=== PATIENT | female | born 1945 | race African-American/Black ===

== ENCOUNTER → 2016-10-27 | Outpatient (CLI) | payer MEDICARE, OTHER | LOC: RAD 09:13 | PROVIDERS: ATTEND Internal Medicine Geriatric Medicine | DX: R63.4 Abnormal weight loss (principal) | CPT/HCPCS: 74177; 82565 ==

== ENCOUNTER → 2016-10-29 | Outpatient (CLI) | payer MEDICARE, OTHER | LOC: RAD 15:13 | PROVIDERS: ATTEND Internal Medicine Geriatric Medicine | DX: R91.8 Other nonspecific abnormal finding of lung field (principal) | CPT/HCPCS: 71260 ==

== ENCOUNTER 2016-11-03 16:36 | Inpatient (IN) | payer MEDICARE, OTHER ==
[2016-11-03] MEDS ORDERED: NORMAL SALINE 1000 ML 1,000 ML IV ONE ×2 (16:52→19:30)
[2016-11-03] MEDS ORDERED: CEFEPIME 2 GM/D5W RTU 50 ML IV SCH (17:15)
[2016-11-03 17:52] LABS: HEMATOCRIT 36.9 % (36.0-47.0); HEMOGLOBIN 11.5 g/dL (12.0-15.5); HGB HCT DIFFERENCE -2.4; MEAN CORPUSCULAR HEMOGLOBIN 27.9 pg (27.0-33.4); MEAN CORPUSCULAR VOLUME 90 fl (80-97); RED BLOOD COUNT 4.11 10^6/uL (3.72-5.28); RED CELL DISTRIBUTION WIDTH 14.9 % (11.5-14.0); WHITE BLOOD COUNT 17.2 10^3/uL (4.0-10.5)
[2016-11-03 17:55] LABS: PARTIAL THROMBOPLASTIN TIME 26.6 SEC (23.5-35.8); PROTHROMBIN TIME 17.3 SEC (11.4-15.4)
[2016-11-03 18:19] LABS: ALANINE AMINOTRANSFERASE 43 U/L (9-52); ALBUMIN 2.6 g/dL (3.5-5.0); ALKALINE PHOSPHATASE 112 U/L (38-126); ANION GAP 17 (5-19); ASPARTATE AMINO TRANSFERASE 44 U/L (14-36); BILIRUBIN,TOTAL 0.4 mg/dL (0.2-1.3); BLOOD UREA NITROGEN 94 mg/dL (7-20); CARBON DIOXIDE 25 mmol/L (22-30); CHLORIDE 118 mmol/L (98-107); CREATININE RESULT 2.63 mg/dL (0.52-1.25); GLUCOSE 281 mg/dL (75-110); POTASSIUM 4.3 mmol/L (3.6-5.0); SODIUM 160.1 mmol/L (137-145); TOTAL PROTEIN 6.6 g/dL (6.3-8.2)
[2016-11-03 18:24] LABS: BASOPHILS % (MANUAL) 0 % (0-2); EOSINOPHILS % (MANUAL) 1 % (0-6); LYMPHOCYTES % (MANUAL) 4 % (13-45); TOTAL CELLS COUNTED 100
[2016-11-03 18:25] LABS: ANISOCYTOSIS SLIGHT; TOXIC GRANULATION SLIGHT
--- NOTE | 2016-11-03 18:26 | PDOC H&P ---
History of Present Illness Admission Date/PCP: 11/03/16 16:47 OLGA OSUNKJULIAA Patient complains of: Fatigue, poor oral intake History of Present Illness: KIRBY RAMIREZ is a 71 year old female who was recently diagnosed with right middle lobe mass and large right pleural effusion. In view of her significant history of cigarette smoking and rapid weight loss there is concern for possible underlying malignancy. Patient was schedule for outpatient right thoracentesis on 11/08/2016. Family brought her to the office today due to worsening fatigue, difficulty with ambulation, poor oral intake for food and fluid and difficulty with breathing. Patient was lifted into wheelchair during this office visit. Her initial evaluation in the office did revealed vitals BP 90/63, MA 1233/min, RR 28/min and temperature was 98.6% on room air with saturation at 90%. In view of demonstrable systemic inflammatory response syndrome parameters patient's family was advised hospitalization for further evaluation and management. Her overall prognosis remain poor in view of her recent circumstances, this was further discussed with spouse and daughters in the office and decision was made to make patient a DNR status. Past Medical History Cardiac Medical History: Reports: Hyperlipidema, Hypertension Pulmonary Medical History: Reports: Other - Right Pleural effusion EENT Medical History: Reports: None Neurological Medical History: Reports: None Endocrine Medical History: Reports: Diabetes Mellitus Type 2 Endocrine History Note: Vitamin D deficiency Renal/ Medical History: Reports: None Malignancy Medical History: Reports: Other - Right Middle Lobe mass with right pleural effusion GI Medical History: Reports: Other - Hemorrhoid GI History Note: Hemorrhoid Psychiatric Medical History: Reports: Dementia - senile type, Depression Past Surgical History Past Surgical History: Reports: Cardiac Catheterization - 2002 Social History Occupation: Retired [employer] worker at [employer] Lives with: Spouse/Significant other Smoking Status: Current Every Day Smoker - until recent illness Cigarettes Packs Per Day: 1 Number of Years Smokin Frequency of Alcohol Use: None Hx Recreational Drug Use: No Drugs: None - Advance Directive Resuscitation Status: Do Not Resuscitate Surrogate healthcare decision maker:: Spouse Family History Family History: DM, Hypertension Parental Family History Reviewed: Yes Children Family History Reviewed: Yes Sibling(s) Family History Reviewed.: Yes Medication/Allergy Home Medications: Lisinopril [Prinivil 40 mg Tablet] 40 mg PO DAILY 05/13/12 Metformin HCl [Glucophage XR 500 mg Tablet] 500 mg PO QPM 05/13/12 Acetaminophen [Tylenol Extra Strength 500 mg Tablet] 1 tab PO Q8 PRN 11/03/16 Aspirin [Aspir-Low] 81 mg PO DAILY 11/03/16 Dronabinol [Dronabinol] 2.5 mg PO DAILY 11/03/16 Ergocalciferol (Vitamin D2) [Vitamin D2] 50,000 unit PO ASDIR PRN 11/03/16 Memantine HCl/Donepezil HCl [Namzaric 28 mg-10 mg Capsule] 1 cap PO DAILY Metoprolol Succinate [Toprol Xl 50 mg Tab.sr] 50 mg PO DAILY 11/03/16 Sertraline HCl [Sertraline HCl] 25 mg PO DAILY 11/03/16 Simvastatin [Simvastatin] 20 mg PO DAILY 11/03/16 Allergies/Adverse Reactions: No Known Allergies Allergy (Unverified 05/13/12 20:10) Review of Systems ROS unobtainable: Due to mental status Review of Systems: as per spouse and daughter's input Constitutional: PRESENT: fatigue, weakness, weight loss Respiratory: PRESENT: dyspnea Neurological: PRESENT: confusion, memory loss, weakness Psychiatric: PRESENT: depression Physical Exam Vital Signs: Temp Pulse Resp BP Pulse Ox 97.5 F 115 H 23 H 85/65 L 95 11/03/16 16:50 11/03/16 16:50 11/03/16 16:50 11/03/16 16:50 11/03/16 16:50 Intake & Output 11/02/16 11/03/16 11/04/16 06:59 06:59 06:59 Weight 53.8 kg General appearance: PRESENT: disheveled, severe distress, thin Head exam: PRESENT: atraumatic, normocephalic Eye exam: PRESENT: conjunctiva pink, EOMI, PERRLA. ABSENT: scleral icterus Ear exam: PRESENT: normal external ear exam Mouth exam: PRESENT: dry mucosa Teeth exam: PRESENT: edentulous Throat exam: ABSENT: post pharyngeal erythema, tonsillar erythema, tonsillar exudate, tonsillogmegaly, other Neck exam: PRESENT: full ROM. ABSENT: carotid bruit, JVD, lymphadenopathy, thyromegaly Respiratory exam: PRESENT: crackles - over lower lung zone bilaterally, decreased breath sounds - right lung zone, tachypnea Cardiovascular exam: PRESENT: tachycardia Pulses: PRESENT: +1 pedal pulses bilateral Vascular exam: PRESENT: pallor GI/Abdominal exam: PRESENT: normal bowel sounds, soft. ABSENT: distended, guarding, mass, organolmegaly, rebound, tenderness Rectal exam: PRESENT: deferred Extremities exam: PRESENT: full ROM Musculoskeletal exam: PRESENT: deformity - from arthritis chamnges involving multiple joints, full ROM Neurological exam: PRESENT: other - Lethergic, non verbal and not following commands Psychiatric exam: PRESENT: flat affect Skin exam: PRESENT: dry. ABSENT: abrasion, cyanosis, erythema, intact, jaundice , mottled, normal color, pallor, petechiae, rash, skin tears, urticaria, vesicles, warm, other Results Laboratory Results: see chart for details Assessment & Plan - Diagnosis (1) SIRS due to infectious process with organ dysfunction Is this a current diagnosis for this admission?: YesPlan: see admitting physician orders. (2) Pleural effusion in other conditions classified elsewhere Is this a current diagnosis for this admission?: YesPlan: see admitting physician orders (3) Mass of middle lobe of right lung Is this a current diagnosis for this admission?: YesPlan: see admitting physician orders (4) HTN (hypertension) Qualifiers: Hypertension type: essential hypertension Qualified Code(s): I10 - Essential (primary) hypertension Is this a current diagnosis for this admission?: Yes (5) HLD (hyperlipidemia) Qualifiers: Hyperlipidemia type: pure hypercholesterolemia Qualified Code(s): E78.00 - Pure hypercholesterolemia, unspecified; E78.0 - Pure hypercholesterolemia Is this a current diagnosis for this admission?: Yes (6) Diabetes mellitus, type 2 Qualifiers: Diabetes mellitus complication status: with hyperglycemia Is this a current diagnosis for this admission?: Yes (7) Dementia, senile Qualifiers: Dementia behavioral disturbance: without behavioral disturbance Qualified Code(s): F03.90 - Unspecified dementia without behavioral disturbance Is this a current diagnosis for this admission?: Yes (8) Depression Qualifiers: Depression Type: major depressive disorder Major depression recurrence : recurrent Active/Remission status: currently active Major depression episode severity: moderate Qualified Code(s): F33.1 - Major depressive disorder, recurrent, moderate Is this a current diagnosis for this admission?: Yes - Time Time Spent: Greater than 70 Minutes Medications reviewed and adjusted accordingly: Yes Anticipated discharge: Other Within: Other - Inpatient Certification Based on my medical assessment, after consideration of the patient's comorbidities, presenting symptoms, or acuity I expect that the services needed warrant INPATIENT care.: Yes I certify that my determination is in accordance with my understanding of Medicare's requirements for reasonable and necessary INPATIENT services [42 CFR 412.3e].: Yes Medical Necessity: Need Close Monitoring Due to Risk of Patient Decompensation, Need For IV Fluids, Need for IV Antibiotics, Risk of Complication if Not Cared For in Hospital Post Hospital Care: D/C Sanitation Worker Documentation - Plan Summary Plan Summary: see admitting physician orders.
[2016-11-03] MEDS ORDERED: ACETAMINOPHEN 650 MG SUPP.RECT PR PRN (18:29)
[2016-11-03] MEDS ORDERED: DEXTROSE 40% GEL 15 GM TUBE PO PRN ×2 (18:30)
[2016-11-03] MEDS ORDERED: DEXTROSE 50%-WATER 25 GM/50 ML DISP.SYRIN IV PRN ×2 (18:30)
[2016-11-03] MEDS ORDERED: GLUCAGON,HUMAN RECOMB 1 MG INJ IM PRN (18:30)
[2016-11-03] MEDS: NORMAL SALINE 1000 ML 1,000 ML IV PRN (18:33)
[2016-11-03] MEDS: LANSOPRAZOLE 30 MG TAB.RAP.DR PO SCH (18:33)
[2016-11-03 18:47] LABS: CALCIUM 13.4 mg/dL (8.4-10.2)
[2016-11-03] MEDS ORDERED: LEVOFLOXACIN 500 MG/D5W RTU 500 MG/100 ML RTUPB IV ONE (20:00)
[2016-11-03 20:29] LABS: APPEARANCE,URINE SLIGHTLY-CLOUDY; BILIRUBIN,URINE NEGATIVE (NEGATIVE); GLUCOSE, URINE NEGATIVE (NEGATIVE); KETONES,URINE NEGATIVE (NEGATIVE); LEUKOCYTE ESTERASE,URINE NEGATIVE (NEGATIVE); NITRITE,URINE NEGATIVE (NEGATIVE); PROTEIN,URINE NEGATIVE (NEGATIVE); URINE SPECIFIC GRAVITY 1.017; UROBILINOGEN,URINE NEGATIVE mg/dL (<2.0)
[2016-11-03] MEDS ORDERED: CEFEPIME HCL 2 GM in DEXTROSE 5%-WATER 50 ML IV SCH (22:00)
[2016-11-03] MEDS: CEFEPIME 1 GM/D5W RTU 1 GM/50 ML RTUPB IV SCH (22:17)
[2016-11-04 04:34] LABS: HEMATOCRIT 35.6 % (36.0-47.0); HEMOGLOBIN 11.3 g/dL (12.0-15.5); HGB HCT DIFFERENCE -1.7; MEAN CORPUSCULAR HEMOGLOBIN 28.3 pg (27.0-33.4); MEAN CORPUSCULAR HGB CONC 31.7 g/dL (32.0-36.0); MEAN CORPUSCULAR VOLUME 89 fl (80-97); RED BLOOD COUNT 3.98 10^6/uL (3.72-5.28); RED CELL DISTRIBUTION WIDTH 14.9 % (11.5-14.0); WHITE BLOOD COUNT 17.6 10^3/uL (4.0-10.5)
[2016-11-04 04:35] LABS: ALANINE AMINOTRANSFERASE 38 U/L (9-52); ALBUMIN 2.5 g/dL (3.5-5.0); ALKALINE PHOSPHATASE 90 U/L (38-126); ANION GAP 9 (5-19); ASPARTATE AMINO TRANSFERASE 35 U/L (14-36); BILIRUBIN,TOTAL 0.3 mg/dL (0.2-1.3); BLOOD UREA NITROGEN 83 mg/dL (7-20); CARBON DIOXIDE 30 mmol/L (22-30); CHLORIDE 125 mmol/L (98-107); CREATININE RESULT 1.77 mg/dL (0.52-1.25); GLUCOSE 92 mg/dL (75-110); POTASSIUM 4.1 mmol/L (3.6-5.0); SODIUM 163.6 mmol/L (137-145); TOTAL PROTEIN 6.5 g/dL (6.3-8.2)
[2016-11-04 05:06] LABS: BAND NEUTROPHILS % (MANUAL) 2 % (3-5); BASOPHILS % (MANUAL) 0 % (0-2); EOSINOPHILS % (MANUAL) 2 % (0-6); LYMPHOCYTES % (MANUAL) 12 % (13-45); TOTAL CELLS COUNTED 100
[2016-11-04 05:07] LABS: ANISOCYTOSIS SLIGHT; BURR CELLS SLIGHT; OVALOCYTES SLIGHT; POIKILOCYTOSIS SLIGHT; TEAR DROP CELLS SLIGHT; TOXIC GRANULATION SLIGHT
[2016-11-04] MEDS: NORMAL SALINE 1000 ML 1,000 ML IV PRN ×2 (05:33→10:12)
[2016-11-04] MEDS ORDERED: NORMAL SALINE 1000 ML 1,000 ML IV ONE (08:15)
--- NOTE | 2016-11-04 08:20 | PDOC PROGRESS REPORT ---
Subjective Progress Note for:: 11/04/16 Subjective:: Patient is more awake this morning. Minimally verbal but remain inappropriate due to baseline dementia. Daughters at bedside. Remain on IV fluid support with improvement in her tachycardia and hypotension. No reported fever, vomiting or diarrhea. Breathing is less labored. There is significant hypercalcemia on her blood chemistry findings. Daughter reported expressed discomfort over left shoulder joint region. Physical Exam Vital Signs: Temp Pulse Resp BP Pulse Ox 97.9 F 90 19 109/65 95 11/04/16 07:23 11/04/16 07:23 11/04/16 07:23 11/04/16 07:23 11/04/16 05:50 Intake & Output 11/03/16 11/04/16 11/05/16 06:59 06:59 06:59 Intake Total 1000 Output Total 650 Balance 350 Weight 56.5 kg General appearance: PRESENT: no acute distress, cooperative Head exam: PRESENT: atraumatic, normocephalic Eye exam: PRESENT: conjunctiva pink, EOMI, PERRLA. ABSENT: scleral icterus Teeth exam: PRESENT: edentulous Neck exam: PRESENT: full ROM. ABSENT: carotid bruit, JVD, lymphadenopathy, thyromegaly Respiratory exam: PRESENT: crackles - bibasilar region, decreased breath sounds - over left lower lung zone Cardiovascular exam: PRESENT: RRR. ABSENT: diastolic murmur, rubs, systolic murmur Pulses: PRESENT: normal radial pulses Vascular exam: PRESENT: normal capillary refill, pallor GI/Abdominal exam: PRESENT: normal bowel sounds, soft. ABSENT: distended, guarding, mass, organolmegaly, rebound, tenderness Extremities exam: PRESENT: full ROM Musculoskeletal exam: PRESENT: deformity - of arthritis with generalized muscle wasting, full ROM Neurological exam: PRESENT: awake, other - generalized deconditioning Psychiatric exam: PRESENT: flat affect Skin exam: PRESENT: dry, intact, warm. ABSENT: cyanosis, rash Results Laboratory Results: 11/04/16 04:00 11/04/16 04:00 11/03/16 11/03/16 11/03/16 17:36 17:36 17:36 WBC 17.2 H RBC 4.11 Hgb 11.5 L Hct 36.9 MCV 90 MCH 27.9 MCHC 31.0 L RDW 14.9 H Plt Count 295 Seg Neutrophils % Not Reportable Lymphocytes % Not Reportable Monocytes % Not Reportable Eosinophils % Not Reportable Basophils % Not Reportable Absolute Neutrophils Not Reportable Absolute Lymphocytes Not Reportable Absolute Monocytes Not Reportable Absolute Eosinophils Not Reportable Absolute Basophils Not Reportable Sodium 160.1 H Potassium 4.3 Chloride 118 H Carbon Dioxide 25 Anion Gap 17 BUN 94 H Creatinine 2.63 H Est GFR ( Amer) 22 L Est GFR (Non-Af Amer) 18 L Glucose 281 H Lactic Acid 3.6 H Calcium 13.4 H* Total Bilirubin 0.4 AST 44 H ALT 43 Alkaline Phosphatase 112 Total Protein 6.6 Albumin 2.6 L Urine Color Urine Appearance Urine pH Ur Specific Fox Urine Protein Urine Glucose (UA) Urine Ketones Urine Blood Urine Nitrite Ur Leukocyte Esterase Urine WBC (Auto) Urine RBC (Auto) 11/03/16 11/03/16 11/04/16 19:50 21:59 04:00 WBC 17.6 H RBC 3.98 Hgb 11.3 L Hct 35.6 L MCV 89 MCH 28.3 MCHC 31.7 L RDW 14.9 H Plt Count 254 Seg Neutrophils % Not Reportable Lymphocytes % Not Reportable Monocytes % Not Reportable Eosinophils % Not Reportable Basophils % Not Reportable Absolute Neutrophils Not Reportable Absolute Lymphocytes Not Reportable Absolute Monocytes Not Reportable Absolute Eosinophils Not Reportable Absolute Basophils Not Reportable Sodium Potassium Chloride Carbon Dioxide Anion Gap BUN Creatinine Est GFR ( Amer) Est GFR (Non-Af Amer) Glucose Lactic Acid 2.4 H Calcium Total Bilirubin AST ALT Alkaline Phosphatase Total Protein Albumin Urine Color YELLOW Urine Appearance SLIGHTLY-CLOUDY Urine pH 5.0 Ur Specific Fox 1.017 Urine Protein NEGATIVE Urine Glucose (UA) NEGATIVE Urine Ketones NEGATIVE Urine Blood NEGATIVE Urine Nitrite NEGATIVE Ur Leukocyte Esterase NEGATIVE Urine WBC (Auto) 2 Urine RBC (Auto) 1 11/04/16 04:00 WBC RBC Hgb Hct MCV MCH MCHC RDW Plt Count Seg Neutrophils % Lymphocytes % Monocytes % Eosinophils % Basophils % Absolute Neutrophils Absolute Lymphocytes Absolute Monocytes Absolute Eosinophils Absolute Basophils Sodium 163.6 H Potassium 4.1 Chloride 125 H Carbon Dioxide 30 Anion Gap 9 BUN 83 H Creatinine 1.77 H Est GFR ( Amer) 34 L Est GFR (Non-Af Amer) 28 L Glucose 92 Lactic Acid Calcium 13.0 H* Total Bilirubin 0.3 AST 35 ALT 38 Alkaline Phosphatase 90 Total Protein 6.5 Albumin 2.5 L Urine Color Urine Appearance Urine pH Ur Specific Fox Urine Protein Urine Glucose (UA) Urine Ketones Urine Blood Urine Nitrite Ur Leukocyte Esterase Urine WBC (Auto) Urine RBC (Auto) Impressions: Chest X-Ray 11/03/16 00:00 IMPRESSION: Airspace consolidation is identified in the right mid lung field which correlates with the right middle lobe collapse identified on the CT scan. Left lung remains clear. Other findings as noted above Assessment & Plan - Diagnosis (1) SIRS due to infectious process with organ dysfunction Is this a current diagnosis for this admission?: YesPlan: Continue IN fluid support and antibiotic coverage with Levofloxacin and Cefepime. (2) Pleural effusion in other conditions classified elsewhere Is this a current diagnosis for this admission?: YesPlan: Chest X ray did not demonstrate any significant left pleural effusion. There is persistent of right middle lobe mass with air space consolidation suggestive of possible post obstructive pneumonia. I will discuss further with radiologist appropriateness of left thoracentesis and consider pulmonary consultation for possible bronchoscopy and biopsy. (3) Mass of middle lobe of right lung Is this a current diagnosis for this admission?: Yes (4) HTN (hypertension) Qualifiers: Hypertension type: essential hypertension Qualified Code(s): I10 - Essential (primary) hypertension Is this a current diagnosis for this admission?: Yes (5) HLD (hyperlipidemia) Qualifiers: Hyperlipidemia type: pure hypercholesterolemia Qualified Code(s): E78.00 - Pure hypercholesterolemia, unspecified; E78.0 - Pure hypercholesterolemia Is this a current diagnosis for this admission?: Yes (6) Diabetes mellitus, type 2 Qualifiers: Diabetes mellitus complication status: with hyperglycemia Is this a current diagnosis for this admission?: Yes (7) Dementia, senile Qualifiers: Dementia behavioral disturbance: without behavioral disturbance Qualified Code(s): F03.90 - Unspecified dementia without behavioral disturbance Is this a current diagnosis for this admission?: Yes (8) Depression Qualifiers: Depression Type: major depressive disorder Major depression recurrence : recurrent Active/Remission status: currently active Major depression episode severity: moderate Qualified Code(s): F33.1 - Major depressive disorder, recurrent, moderate Is this a current diagnosis for this admission?: Yes (9) Hypercalcemia of malignancy Is this a current diagnosis for this admission?: YesPlan: Maintain on IV fluid support.Repeat IV N/S 1 liter bolus this morning. Administer IV Pamidronate 60 mg x 1 dose. - Time Time Spent with patient: 25-34 minutes Medications reviewed and adjusted accordingly: Yes Anticipated discharge: Home with Homehealth Within: Other - Inpatient Certification Based on my medical assessment, after consideration of the patient's comorbidities, presenting symptoms, or acuity I expect that the services needed warrant INPATIENT care.: Yes I certify that my determination is in accordance with my understanding of Medicare's requirements for reasonable and necessary INPATIENT services [42 CFR 412.3e].: Yes Medical Necessity: Need For IV Fluids, Need For Continuous Telemetry Monitoring , Need for IV Antibiotics, Risk of Complication if Not Cared For in Hospital Post Hospital Care: D/C Ethnic Studies Professor Documentation - Plan Summary Plan Summary: Please admitting physician orders.
[2016-11-04] MEDS ORDERED: NORMAL SALINE IV SCH (10:00)
[2016-11-04] MEDS ORDERED: PAMIDRONATE DISODIUM IV SCH (10:00)
[2016-11-04 15:31] LABS: FLUID APPEARANCE CLOUDY; FLUID RBC SIDE 1 206; FLUID RBC SIDE 2 194; FLUID TYPE PLEURAL
[2016-11-04 15:32] LABS: FLUID RBC DILUENT USED SALINE; FLUID RBC DILUTION FACTOR 20; TOTAL RBC SQUARES COUNTED FLD 25
[2016-11-04] MEDS: DEXTROSE 5%-NORMAL SALINE 1,000 ML IV PRN (19:29)
[2016-11-04] MEDS: CEFEPIME 1 GM/D5W RTU 1 GM/50 ML RTUPB IV SCH (21:03)
[2016-11-05] MEDS: DEXTROSE 5%-NORMAL SALINE 1,000 ML IV PRN ×2 (04:35→12:00)
[2016-11-05] MEDS: LANSOPRAZOLE 30 MG TAB.RAP.DR PO SCH (05:08)
[2016-11-05 10:35] LABS: HEMATOCRIT 36.7 % (36.0-47.0); HEMOGLOBIN 10.9 g/dL (12.0-15.5); MEAN CORPUSCULAR HEMOGLOBIN 27.3 pg (27.0-33.4); MEAN CORPUSCULAR HGB CONC 29.8 g/dL (32.0-36.0); MEAN CORPUSCULAR VOLUME 92 fl (80-97); RED CELL DISTRIBUTION WIDTH 14.9 % (11.5-14.0); WHITE BLOOD COUNT 16.9 10^3/uL (4.0-10.5)
[2016-11-05 11:03] LABS: BASOPHILS % (MANUAL) 0 % (0-2); EOSINOPHILS % (MANUAL) 0 % (0-6); LYMPHOCYTES % (MANUAL) 4 % (13-45); TOTAL CELLS COUNTED 100
[2016-11-05 11:04] LABS: BURR CELLS SLIGHT; POIKILOCYTOSIS SLIGHT
[2016-11-05 11:05] LABS: OVALOCYTES SLIGHT; SCHISTOCYTES SLIGHT
[2016-11-05 11:10] LABS: ALANINE AMINOTRANSFERASE 34 U/L (9-52); ALBUMIN 2.1 g/dL (3.5-5.0); ALKALINE PHOSPHATASE 82 U/L (38-126); ANION GAP 12 (5-19); ASPARTATE AMINO TRANSFERASE 40 U/L (14-36); BILIRUBIN,TOTAL 0.4 mg/dL (0.2-1.3); BLOOD UREA NITROGEN 50 mg/dL (7-20); CARBON DIOXIDE 26 mmol/L (22-30); CHLORIDE 128 mmol/L (98-107); CREATININE RESULT 1.09 mg/dL (0.52-1.25); GLUCOSE 193 mg/dL (75-110); POTASSIUM 3.3 mmol/L (3.6-5.0); SODIUM 165.8 mmol/L (137-145); TOTAL PROTEIN 5.5 g/dL (6.3-8.2)
[2016-11-05] MEDS ORDERED: INSULIN GLARGINE,HUM.REC.ANLOG 300 UNIT/3 ML INSULN.PEN SUBCUT ONE ×2 (14:30→16:30)
--- NOTE | 2016-11-05 15:21 | PDOC PROGRESS REPORT ---
Subjective Progress Note for:: 11/05/16 Subjective:: Patient is more engaging and participated in swallowing evaluation earlier today. Tolerated oral feeding although not enough quantity. Remain minimally verbal due to generalized weakness and baseline dementia. Daughters at bedside. Remain on IV fluid support. No reported fever, vomiting or diarrhea. No reported chest pain or difficulty with breathing. Patient is post IV Pamidronate administration for significant hypercalcemia. Awaiting cytology report on her pleural fluid specimen. Physical Exam Vital Signs: Temp Pulse Resp BP Pulse Ox 98.1 F 110 H 16 132/70 H 100 11/05/16 11:56 11/05/16 14:00 11/05/16 11:56 11/05/16 11:56 11/05/16 11:56 Intake & Output 11/04/16 11/05/16 11/06/16 06:59 06:59 06:59 Intake Total 1000 1100 Output Total 650 1175 200 Balance 350 -75 -200 Weight 56.5 kg 57.2 kg General appearance: PRESENT: no acute distress, cooperative Head exam: PRESENT: atraumatic, normocephalic Eye exam: PRESENT: conjunctiva pink, EOMI, PERRLA. ABSENT: scleral icterus Mouth exam: PRESENT: moist - fairly, tongue midline Neck exam: PRESENT: full ROM. ABSENT: carotid bruit, JVD, lymphadenopathy, thyromegaly Respiratory exam: PRESENT: crackles - scattered bilaterally, decreased breath sounds - at lung bases Cardiovascular exam: PRESENT: RRR. ABSENT: diastolic murmur, rubs, systolic murmur GI/Abdominal exam: PRESENT: normal bowel sounds, soft. ABSENT: distended, guarding, mass, organolmegaly, rebound, tenderness Extremities exam: PRESENT: full ROM, tenderness - with left upper extremity movement Musculoskeletal exam: PRESENT: full ROM, other - generalized muscle wasting Neurological exam: PRESENT: awake, other - not oriented to place, time and person due to her baseline dementia Psychiatric exam: PRESENT: flat affect, normal mood Skin exam: PRESENT: dry, intact, warm. ABSENT: cyanosis, rash Results Laboratory Results: 11/05/16 10:12 11/05/16 10:12 11/04/16 11/05/16 11/05/16 14:24 10:12 10:12 WBC 16.9 H RBC 4.00 Hgb 10.9 L Hct 36.7 MCV 92 MCH 27.3 MCHC 29.8 L RDW 14.9 H Plt Count 210 Seg Neutrophils % Not Reportable Lymphocytes % Not Reportable Monocytes % Not Reportable Eosinophils % Not Reportable Basophils % Not Reportable Absolute Neutrophils Not Reportable Absolute Lymphocytes Not Reportable Absolute Monocytes Not Reportable Absolute Eosinophils Not Reportable Absolute Basophils Not Reportable Sodium 165.8 H Potassium 3.3 L Chloride 128 H Carbon Dioxide 26 Anion Gap 12 BUN 50 H Creatinine 1.09 Est GFR ( Amer) > 60 Est GFR (Non-Af Amer) 49 L Glucose 193 H Calcium 12.0 H* Total Bilirubin 0.4 AST 40 H ALT 34 Alkaline Phosphatase 82 Total Protein 5.5 L Albumin 2.1 L Fluid Type PLEURAL Fluid Source THORACENTESIS Fluid Color RED Fluid Appearance CLOUDY Fluid Viscosity LIQUID Fluid WBC 142 Fluid RBC [id number] 11/03/16 19:50 Ramos Catheter Urine Culture - Final NO GROWTH 2 DAYS Impressions: Thoracentesis Ultrasound 11/04/16 08:00 IMPRESSION: SUCCESSFUL THORACENTESIS USING ULTRASOUND GUIDANCE. Chest X-Ray 11/04/16 16:30 IMPRESSION: No pneumothorax. Persistent consolidation in the right middle lobe. Assessment & Plan - Diagnosis (1) SIRS due to infectious process with organ dysfunction Is this a current diagnosis for this admission?: Yes (2) Pleural effusion in other conditions classified elsewhere Is this a current diagnosis for this admission?: Yes (3) Mass of middle lobe of right lung Is this a current diagnosis for this admission?: Yes (4) HTN (hypertension) Qualifiers: Hypertension type: essential hypertension Qualified Code(s): I10 - Essential (primary) hypertension Is this a current diagnosis for this admission?: Yes (5) HLD (hyperlipidemia) Qualifiers: Hyperlipidemia type: pure hypercholesterolemia Qualified Code(s): E78.00 - Pure hypercholesterolemia, unspecified; E78.0 - Pure hypercholesterolemia Is this a current diagnosis for this admission?: Yes (6) Diabetes mellitus, type 2 Qualifiers: Diabetes mellitus complication status: with hyperglycemia Is this a current diagnosis for this admission?: Yes (7) Dementia, senile Qualifiers: Dementia behavioral disturbance: without behavioral disturbance Qualified Code(s): F03.90 - Unspecified dementia without behavioral disturbance Is this a current diagnosis for this admission?: Yes (8) Depression Qualifiers: Depression Type: major depressive disorder Major depression recurrence : recurrent Active/Remission status: currently active Major depression episode severity: moderate Qualified Code(s): F33.1 - Major depressive disorder, recurrent, moderate Is this a current diagnosis for this admission?: Yes (9) Hypercalcemia of malignancy Is this a current diagnosis for this admission?: Yes (10) Dehydration with hypernatremia Is this a current diagnosis for this admission?: YesPlan: I will change her IV fluid to D5W at 100mL/hour due to worsening hypernatremia from poor free water intake. (11) Hypokalemia due to inadequate potassium intake Is this a current diagnosis for this admission?: YesPlan: Patient will receive 40 mEq of potassium chloride. We will repeat BMP in am. - Time Time Spent with patient: 25-34 minutes Medications reviewed and adjusted accordingly: Yes Anticipated discharge: Other - Inpatient Certification Medical Necessity: Need Close Monitoring Due to Risk of Patient Decompensation, Need For IV Fluids, Need for IV Antibiotics, Risk of Complication if Not Cared For in Hospital Post Hospital Care: D/C Wind Up Operator Documentation - Plan Summary Plan Summary: see attending physician orders.
[2016-11-05] MEDS: POTASSI CL 20 MEQ/50 ML RIDER 50 ML IV SCH ×2 (15:55→16:25)
[2016-11-05] MEDS: INSULIN LISPRO 100 UNIT/ML 3 ML VIAL SUBCUT PRN (16:24)
[2016-11-05] MEDS: LEVOFLOXACIN 250 MG/D5W RTU 250 MG/50 ML RTUPB IV SCH (20:08)
[2016-11-05] MEDS: DEXTROSE 5%-WATER 1000 ML 1,000 ML IV PRN (20:10)
[2016-11-05] MEDS: CEFEPIME 1 GM/D5W RTU 1 GM/50 ML RTUPB IV SCH (21:48)
[2016-11-06] MEDS: INSULIN LISPRO 100 UNIT/ML 3 ML VIAL SUBCUT PRN ×3 (00:47→23:48)
[2016-11-06] MEDS: LANSOPRAZOLE 30 MG TAB.RAP.DR PO SCH (06:26)
[2016-11-06] MEDS: INSULIN GLARGINE,HUM.REC.ANLOG 300 UNIT/3 ML INSULN.PEN SUBCUT SCH (10:22)
[2016-11-06] MEDS: DEXTROSE 5%-WATER 1000 ML 1,000 ML IV PRN ×2 (10:31→21:16)
--- NOTE | 2016-11-06 15:43 | PDOC PROGRESS REPORT ---
Subjective Progress Note for:: 11/06/16 Subjective:: Patient continue to demonstrate some improvement in her alertness. No reported fever, vomiting or diarrhea. Tolerated oral feeding but intake remain a challenge. Remain minimally verbal due to generalized weakness and baseline dementia. Remain on IV fluid support. Awaiting cytology report on her pleural fluid specimen. I had extensive discussion with spouse at bedside. music professor did revealed intermittent episode of tachycardia. Physical Exam Vital Signs: Temp Pulse Resp BP Pulse Ox 98.4 F 106 H 16 140/81 H 100 11/06/16 11:17 11/06/16 14:00 11/06/16 11:17 11/06/16 11:17 11/06/16 11:17 Intake & Output 11/05/16 11/06/16 11/07/16 06:59 06:59 06:59 Intake Total 1100 2264 Output Total 1175 1500 Balance -75 764 Weight 57.2 kg 62.1 kg Physical Exam: There is generalized deconditioning. General appearance: PRESENT: no acute distress Eye exam: PRESENT: conjunctiva pink, EOMI, PERRLA Mouth exam: PRESENT: moist - fairly Teeth exam: PRESENT: edentulous Neck exam: PRESENT: full ROM. ABSENT: carotid bruit, JVD, lymphadenopathy, thyromegaly Respiratory exam: PRESENT: decreased breath sounds - at lung bases. ABSENT: accessory muscle use, chest wall tenderness, clear to auscultation elisa, crackles , prolonged expiratory phas, rales, retraction, rhonchi, stridor, symmetrical, tachypnea, unlabored, wheezes, other Cardiovascular exam: PRESENT: RRR. ABSENT: diastolic murmur, rubs, systolic murmur GI/Abdominal exam: PRESENT: normal bowel sounds, soft. ABSENT: distended, guarding, mass, organolmegaly, rebound, tenderness Musculoskeletal exam: PRESENT: other - generalized muscle wasting Neurological exam: PRESENT: awake Psychiatric exam: PRESENT: appropriate affect, normal mood. ABSENT: homicidal ideation, suicidal ideation Skin exam: PRESENT: dry, intact, warm. ABSENT: cyanosis, rash Results Laboratory Results: 11/05/16 10:12 11/05/16 10:12 11/05/16 10:12 Magnesium 2.1 Impressions: Thoracentesis Ultrasound 11/04/16 08:00 IMPRESSION: SUCCESSFUL THORACENTESIS USING ULTRASOUND GUIDANCE. Chest X-Ray 11/04/16 16:30 IMPRESSION: No pneumothorax. Persistent consolidation in the right middle lobe. Assessment & Plan - Diagnosis (1) SIRS due to infectious process with organ dysfunction Is this a current diagnosis for this admission?: YesPlan: Continue IV antibiotic coverage with Levofloxacin and Cefepime. (2) Pleural effusion in other conditions classified elsewhere Is this a current diagnosis for this admission?: Yes (3) Mass of middle lobe of right lung Is this a current diagnosis for this admission?: Yes (4) HTN (hypertension) Qualifiers: Hypertension type: essential hypertension Qualified Code(s): I10 - Essential (primary) hypertension Is this a current diagnosis for this admission?: YesPlan: I will restart on Lisinopril at 20 mg p.o daily and Metoprolol Tartrate at 12.5 mg po bid. (5) HLD (hyperlipidemia) Qualifiers: Hyperlipidemia type: pure hypercholesterolemia Qualified Code(s): E78.00 - Pure hypercholesterolemia, unspecified; E78.0 - Pure hypercholesterolemia Is this a current diagnosis for this admission?: Yes (6) Diabetes mellitus, type 2 Qualifiers: Diabetes mellitus complication status: with hyperglycemia Is this a current diagnosis for this admission?: Yes (7) Dementia, senile Qualifiers: Dementia behavioral disturbance: without behavioral disturbance Qualified Code(s): F03.90 - Unspecified dementia without behavioral disturbance Is this a current diagnosis for this admission?: Yes (8) Depression Qualifiers: Depression Type: major depressive disorder Major depression recurrence : recurrent Active/Remission status: currently active Major depression episode severity: moderate Qualified Code(s): F33.1 - Major depressive disorder, recurrent, moderate Is this a current diagnosis for this admission?: Yes (9) Hypercalcemia of malignancy Is this a current diagnosis for this admission?: Yes (10) Dehydration with hypernatremia Is this a current diagnosis for this admission?: Yes (11) Hypokalemia due to inadequate potassium intake Is this a current diagnosis for this admission?: Yes (12) Failure to thrive in adult Is this a current diagnosis for this admission?: YesPlan: Probably related to her medial condition and poor oral intake. I will start on appetite stimulant with Marinol 2.5 mg po before Lunch. (13) Physical deconditioning Is this a current diagnosis for this admission?: YesPlan: I will request physical therapy service intervention. - Time Time Spent with patient: 25-34 minutes Medications reviewed and adjusted accordingly: Yes Anticipated discharge: Home with Homehealth Within: Other - Inpatient Certification Based on my medical assessment, after consideration of the patient's comorbidities, presenting symptoms, or acuity I expect that the services needed warrant INPATIENT care.: Yes I certify that my determination is in accordance with my understanding of Medicare's requirements for reasonable and necessary INPATIENT services [42 CFR 412.3e].: Yes Medical Necessity: Need For IV Fluids, Need for Neurological Checks, Need for IV Antibiotics, Risk of Complication if Not Cared For in Hospital Post Hospital Care: D/C Client Professional Documentation - Plan Summary Plan Summary: See attending physician orders.
[2016-11-06] MEDS ORDERED: METOPROLOL TARTRATE 25 MG TABLET PO ONE (16:30)
[2016-11-06 16:37] LABS: HEMATOCRIT 34.5 % (36.0-47.0); HEMOGLOBIN 10.8 g/dL (12.0-15.5); HGB HCT DIFFERENCE -2.1; MEAN CORPUSCULAR HEMOGLOBIN 27.9 pg (27.0-33.4); MEAN CORPUSCULAR HGB CONC 31.2 g/dL (32.0-36.0); MEAN CORPUSCULAR VOLUME 90 fl (80-97); RED BLOOD COUNT 3.85 10^6/uL (3.72-5.28); RED CELL DISTRIBUTION WIDTH 15.1 % (11.5-14.0); WHITE BLOOD COUNT 18.5 10^3/uL (4.0-10.5)
[2016-11-06 16:53] LABS: ANION GAP 10 (5-19); BLOOD UREA NITROGEN 33 mg/dL (7-20); CALCIUM 10.7 mg/dL (8.4-10.2); CARBON DIOXIDE 25 mmol/L (22-30); CHLORIDE 125 mmol/L (98-107); CREATININE RESULT 0.88 mg/dL (0.52-1.25); GLUCOSE 227 mg/dL (75-110); POTASSIUM 3.4 mmol/L (3.6-5.0); SODIUM 160.3 mmol/L (137-145)
[2016-11-06 16:57] LABS: BASOPHILS % (MANUAL) 0 % (0-2); EOSINOPHILS % (MANUAL) 3 % (0-6); LYMPHOCYTES % (MANUAL) 2 % (13-45); TOTAL CELLS COUNTED 100
[2016-11-06 17:01] LABS: ANISOCYTOSIS SLIGHT; OVALOCYTES SLIGHT; POIKILOCYTOSIS SLIGHT
[2016-11-06] MEDS: CEFEPIME 1 GM/D5W RTU 1 GM/50 ML RTUPB IV SCH (21:14)
[2016-11-07] MEDS: METOPROLOL TARTRATE 25 MG TABLET PO SCH ×2 (05:44→17:55)
[2016-11-07] MEDS: LANSOPRAZOLE 30 MG TAB.RAP.DR PO SCH (05:45)
[2016-11-07] MEDS: DEXTROSE 5%-WATER 1000 ML 1,000 ML IV PRN ×2 (07:54→17:54)
[2016-11-07] MEDS: INSULIN LISPRO 100 UNIT/ML 3 ML VIAL SUBCUT PRN (07:55)
[2016-11-07] MEDS: INSULIN GLARGINE,HUM.REC.ANLOG 300 UNIT/3 ML INSULN.PEN SUBCUT SCH (10:44)
[2016-11-07] MEDS: LISINOPRIL 10 MG TABLET PO SCH (13:31)
--- NOTE | 2016-11-07 15:11 | PDOC PROGRESS REPORT ---
Subjective Progress Note for:: 11/07/16 Subjective:: Patient is more sleepy today. Poor p.o intake. No reported fever, nausea, vomiting or diarrhea. Remain on IV fluid support. Awaiting cytology report on her pleural fluid specimen. No reported difficulty with breathing, remain on supplemental oxygen at 2L/min via nasal cannula. Physical Exam Vital Signs: Temp Pulse Resp BP Pulse Ox 97.6 F 87 18 133/72 H 100 11/07/16 11:38 11/07/16 11:38 11/07/16 11:38 11/07/16 11:38 11/07/16 11:38 Intake & Output 11/06/16 11/07/16 11/08/16 06:59 06:59 06:59 Intake Total 2264 3456 Output Total 1500 1250 Balance 764 2206 Weight 62.1 kg 63.1 kg General appearance: PRESENT: no acute distress Head exam: PRESENT: atraumatic, normocephalic Eye exam: PRESENT: conjunctiva pink, EOMI, PERRLA Neck exam: PRESENT: full ROM. ABSENT: carotid bruit, JVD, lymphadenopathy, thyromegaly Respiratory exam: ABSENT: accessory muscle use, chest wall tenderness, clear to auscultation elisa, crackles, decreased breath sounds, prolonged expiratory phas, rales, retraction, rhonchi, stridor, symmetrical, tachypnea, unlabored, wheezes , other Cardiovascular exam: PRESENT: RRR. ABSENT: diastolic murmur, rubs, systolic murmur GI/Abdominal exam: PRESENT: normal bowel sounds, soft. ABSENT: distended, guarding, mass, organolmegaly, rebound, tenderness Extremities exam: PRESENT: full ROM Musculoskeletal exam: PRESENT: other - generalized muscle wasting Neurological exam: PRESENT: alert, awake, other - generalized deconditioning Psychiatric exam: PRESENT: appropriate affect Skin exam: PRESENT: dry, intact, warm. ABSENT: cyanosis, rash Results Laboratory Results: 11/06/16 16:15 11/06/16 16:15 11/06/16 11/06/16 16:15 16:15 WBC 18.5 H RBC 3.85 Hgb 10.8 L Hct 34.5 L MCV 90 MCH 27.9 MCHC 31.2 L RDW 15.1 H Plt Count 196 Seg Neutrophils % Not Reportable Lymphocytes % Not Reportable Monocytes % Not Reportable Eosinophils % Not Reportable Basophils % Not Reportable Absolute Neutrophils Not Reportable Absolute Lymphocytes Not Reportable Absolute Monocytes Not Reportable Absolute Eosinophils Not Reportable Absolute Basophils Not Reportable Sodium 160.3 H Potassium 3.4 L Chloride 125 H Carbon Dioxide 25 Anion Gap 10 BUN 33 H Creatinine 0.88 Est GFR ( Amer) > 60 Est GFR (Non-Af Amer) > 60 Glucose 227 H Calcium 10.7 H Impressions: Thoracentesis Ultrasound 11/04/16 08:00 IMPRESSION: SUCCESSFUL THORACENTESIS USING ULTRASOUND GUIDANCE. Chest X-Ray 11/04/16 16:30 IMPRESSION: No pneumothorax. Persistent consolidation in the right middle lobe. Assessment & Plan - Diagnosis (1) SIRS due to infectious process with organ dysfunction Is this a current diagnosis for this admission?: Yes (2) Pleural effusion in other conditions classified elsewhere Is this a current diagnosis for this admission?: YesPlan: I will follow up on pleural fluid cytology findings tomorrow. (3) Mass of middle lobe of right lung Is this a current diagnosis for this admission?: Yes (4) HTN (hypertension) Qualifiers: Hypertension type: essential hypertension Qualified Code(s): I10 - Essential (primary) hypertension Is this a current diagnosis for this admission?: Yes (5) HLD (hyperlipidemia) Qualifiers: Hyperlipidemia type: pure hypercholesterolemia Qualified Code(s): E78.00 - Pure hypercholesterolemia, unspecified; E78.0 - Pure hypercholesterolemia Is this a current diagnosis for this admission?: Yes (6) Diabetes mellitus, type 2 Qualifiers: Diabetes mellitus complication status: with hyperglycemia Is this a current diagnosis for this admission?: Yes (7) Dementia, senile Qualifiers: Dementia behavioral disturbance: without behavioral disturbance Qualified Code(s): F03.90 - Unspecified dementia without behavioral disturbance Is this a current diagnosis for this admission?: Yes (8) Depression Qualifiers: Depression Type: major depressive disorder Major depression recurrence : recurrent Active/Remission status: currently active Major depression episode severity: moderate Qualified Code(s): F33.1 - Major depressive disorder, recurrent, moderate Is this a current diagnosis for this admission?: Yes (9) Hypercalcemia of malignancy Is this a current diagnosis for this admission?: Yes (10) Dehydration with hypernatremia Is this a current diagnosis for this admission?: Yes (11) Hypokalemia due to inadequate potassium intake Is this a current diagnosis for this admission?: YesPlan: Patient will receive IV potassium chloride 40mEq rider. We will repeat BMP in am. (12) Failure to thrive in adult Is this a current diagnosis for this admission?: YesPlan: Continue to encourage increase p.o intake. Maintain on Marinol 2.5 mg p.o pre Lunch. (13) Physical deconditioning Is this a current diagnosis for this admission?: Yes - Time Time Spent with patient: 25-34 minutes Medications reviewed and adjusted accordingly: Yes Anticipated discharge: Other Within: Other - Inpatient Certification Medical Necessity: Need Close Monitoring Due to Risk of Patient Decompensation, Need For IV Fluids, Need For Continuous Telemetry Monitoring, Need for IV Antibiotics, Risk of Complication if Not Cared For in Hospital Post Hospital Care: D/C Bundle Sorter Documentation - Plan Summary Plan Summary: see attending physician orders.
[2016-11-07] MEDS: LEVOFLOXACIN 250 MG/D5W RTU 250 MG/50 ML RTUPB IV SCH (17:54)
[2016-11-07] MEDS: CEFEPIME 1 GM/D5W RTU 1 GM/50 ML RTUPB IV SCH (21:13)
[2016-11-08] MEDS: METOPROLOL TARTRATE 25 MG TABLET PO SCH ×2 (05:00→21:26)
[2016-11-08] MEDS: LANSOPRAZOLE 30 MG TAB.RAP.DR PO SCH (05:01)
[2016-11-08] MEDS: DEXTROSE 5%-WATER 1000 ML 1,000 ML IV PRN ×2 (05:44→16:20)
[2016-11-08] MEDS: INSULIN LISPRO 100 UNIT/ML 3 ML VIAL SUBCUT PRN ×3 (06:04→16:34)
[2016-11-08] MEDS: LISINOPRIL 10 MG TABLET PO SCH (09:50)
[2016-11-08] MEDS: INSULIN GLARGINE,HUM.REC.ANLOG 300 UNIT/3 ML INSULN.PEN SUBCUT SCH (10:10)
--- NOTE | 2016-11-08 11:57 | PDOC PROGRESS REPORT ---
Subjective Progress Note for:: 11/08/16 Subjective:: Patient is awake and appropriate during evaluation this morning. No reported fever, nausea, vomiting or diarrhea. P.O intake so far today satisfactory. Remain on IV fluid support. Awaiting cytology report on her pleural fluid specimen. No reported chest pain or difficulty with breathing. Physical Exam Vital Signs: Temp Pulse Resp BP Pulse Ox 97.3 F 129 H 22 H 122/81 100 11/08/16 07:59 11/08/16 07:59 11/08/16 07:59 11/08/16 07:59 11/08/16 10:44 Intake & Output 11/07/16 11/08/16 11/09/16 06:59 06:59 06:59 Intake Total 3456 2225 Output Total 1250 1250 Balance 2206 975 Weight 63.1 kg 61.7 kg General appearance: PRESENT: no acute distress, cooperative Eye exam: PRESENT: conjunctiva pink, EOMI, PERRLA Mouth exam: PRESENT: moist Respiratory exam: PRESENT: decreased breath sounds - at lung bases. ABSENT: accessory muscle use, chest wall tenderness, clear to auscultation elisa, crackles , prolonged expiratory phas, rales, retraction, rhonchi, stridor, symmetrical, tachypnea, unlabored, wheezes, other Cardiovascular exam: PRESENT: RRR. ABSENT: diastolic murmur, rubs, systolic murmur GI/Abdominal exam: PRESENT: tenderness - nonspecifi over LLQ region. ABSENT: ascites, diminished bowel sounds, distended, firm, guarding, hernia, hyperactive bowel sounds, hypoactive bowel sounds, mass, Law's sign, normal bowel sounds, organolmegaly, rebound, rigid, soft, other Extremities exam: PRESENT: full ROM, other - generalized muscle wasting Neurological exam: PRESENT: alert - with baseline dementia, awake, CN II-XII grossly intact, motor sensory deficit Psychiatric exam: PRESENT: appropriate affect, normal mood. ABSENT: homicidal ideation, suicidal ideation Skin exam: PRESENT: dry, intact, warm. ABSENT: cyanosis, rash Results Laboratory Results: 11/06/16 16:15 11/06/16 16:15 11/04/16 14:24 Pleural Fluid Gram Stain - Final 11/04/16 14:24 Pleural Fluid Body Fluid Culture - Final NO AEROBIC OR ANAEROBIC ORGANISMS RECOVERED Impressions: Thoracentesis Ultrasound 11/04/16 08:00 IMPRESSION: SUCCESSFUL THORACENTESIS USING ULTRASOUND GUIDANCE. Chest X-Ray 11/04/16 16:30 IMPRESSION: No pneumothorax. Persistent consolidation in the right middle lobe. Assessment & Plan - Diagnosis (1) SIRS due to infectious process with organ dysfunction Is this a current diagnosis for this admission?: Yes (2) Pleural effusion in other conditions classified elsewhere Is this a current diagnosis for this admission?: YesPlan: I will follow up on pleural fluid cytology findings tomorrow. (3) Mass of middle lobe of right lung Is this a current diagnosis for this admission?: Yes (4) HTN (hypertension) Qualifiers: Hypertension type: essential hypertension Qualified Code(s): I10 - Essential (primary) hypertension Is this a current diagnosis for this admission?: YesPlan: Increase Metoprolol Tartrate to 25 mg p.o bid. Continue all other anti HTN medication. (5) HLD (hyperlipidemia) Qualifiers: Hyperlipidemia type: pure hypercholesterolemia Qualified Code(s): E78.00 - Pure hypercholesterolemia, unspecified; E78.0 - Pure hypercholesterolemia Is this a current diagnosis for this admission?: Yes (6) Diabetes mellitus, type 2 Qualifiers: Diabetes mellitus complication status: with hyperglycemia Is this a current diagnosis for this admission?: Yes (7) Dementia, senile Qualifiers: Dementia behavioral disturbance: without behavioral disturbance Qualified Code(s): F03.90 - Unspecified dementia without behavioral disturbance Is this a current diagnosis for this admission?: Yes (8) Depression Qualifiers: Depression Type: major depressive disorder Major depression recurrence : recurrent Active/Remission status: currently active Major depression episode severity: moderate Qualified Code(s): F33.1 - Major depressive disorder, recurrent, moderate Is this a current diagnosis for this admission?: Yes (9) Hypercalcemia of malignancy Is this a current diagnosis for this admission?: Yes (10) Dehydration with hypernatremia Is this a current diagnosis for this admission?: Yes (11) Hypokalemia due to inadequate potassium intake Is this a current diagnosis for this admission?: Yes (12) Failure to thrive in adult Is this a current diagnosis for this admission?: YesPlan: Continue to encourage increase p.o intake. Maintain on Marinol 2.5 mg p.o pre Lunch. (13) Physical deconditioning Is this a current diagnosis for this admission?: Yes - Time Time Spent with patient: 25-34 minutes Medications reviewed and adjusted accordingly: Yes Anticipated discharge: Home with Homehealth Within: Other - Inpatient Certification Based on my medical assessment, after consideration of the patient's comorbidities, presenting symptoms, or acuity I expect that the services needed warrant INPATIENT care.: Yes I certify that my determination is in accordance with my understanding of Medicare's requirements for reasonable and necessary INPATIENT services [42 CFR 412.3e].: Yes Medical Necessity: Need Close Monitoring Due to Risk of Patient Decompensation, Need For IV Fluids, Need For Continuous Telemetry Monitoring, Need for IV Antibiotics, Risk of Complication if Not Cared For in Hospital Post Hospital Care: D/C Keno Attendant Documentation - Plan Summary Plan Summary: see admitting attending orders
[2016-11-08 13:43] LABS: HEMATOCRIT 36.3 % (36.0-47.0); HEMOGLOBIN 11.2 g/dL (12.0-15.5); HGB HCT DIFFERENCE -2.7; MEAN CORPUSCULAR HEMOGLOBIN 27.4 pg (27.0-33.4); MEAN CORPUSCULAR HGB CONC 30.8 g/dL (32.0-36.0); MEAN CORPUSCULAR VOLUME 89 fl (80-97); RED BLOOD COUNT 4.08 10^6/uL (3.72-5.28); RED CELL DISTRIBUTION WIDTH 14.6 % (11.5-14.0); WHITE BLOOD COUNT 19.1 10^3/uL (4.0-10.5)
[2016-11-08 14:08] LABS: ALANINE AMINOTRANSFERASE 123 U/L (9-52); ALKALINE PHOSPHATASE 193 U/L (38-126); ANION GAP 11 (5-19); ASPARTATE AMINO TRANSFERASE 155 U/L (14-36); BILIRUBIN,TOTAL 0.7 mg/dL (0.2-1.3); BLOOD UREA NITROGEN 19 mg/dL (7-20); CALCIUM 8.8 mg/dL (8.4-10.2); CARBON DIOXIDE 26 mmol/L (22-30); CHLORIDE 102 mmol/L (98-107); CREATININE RESULT 0.69 mg/dL (0.52-1.25); GLUCOSE 311 mg/dL (75-110); POTASSIUM 3.1 mmol/L (3.6-5.0); SODIUM 139.3 mmol/L (137-145); TOTAL PROTEIN 5.3 g/dL (6.3-8.2)
[2016-11-08 14:17] LABS: BASOPHILS % (MANUAL) 0 % (0-2); EOSINOPHILS % (MANUAL) 1 % (0-6); LYMPHOCYTES % (MANUAL) 0 % (13-45); TOTAL CELLS COUNTED 100
[2016-11-08 14:19] LABS: ANISOCYTOSIS SLIGHT; OVALOCYTES 1+; POIKILOCYTOSIS 1+
[2016-11-08] MEDS: POTASSIUM CHLORIDE 10 MEQ TABLET.SA PO SCH ×2 (17:22→18:06)
[2016-11-08] MEDS ORDERED: LEVOFLOXACIN 250 MG TABLET PO SCH (18:00)
[2016-11-08] MEDS ORDERED: MAGNESIUM SULFATE/D5W 1 GM/100 ML RTUPB IV ONE (19:15)
[2016-11-08] MEDS: CEFEPIME 1 GM/D5W RTU 1 GM/50 ML RTUPB IV SCH (21:27)
[2016-11-08] MEDS: POTASSIUM CHLORIDE 20 MEQ/15 ML UDCUP PO SCH (21:27)
[2016-11-09] MEDS: INSULIN LISPRO 100 UNIT/ML 3 ML VIAL SUBCUT PRN ×3 (00:15→18:24)
[2016-11-09] MEDS: POTASSIUM CHLORIDE 20 MEQ/15 ML UDCUP PO SCH (01:12)
[2016-11-09] MEDS: DEXTROSE 5%-WATER 1000 ML 1,000 ML IV PRN ×2 (01:46→14:25)
[2016-11-09] MEDS: LANSOPRAZOLE 30 MG TAB.RAP.DR PO SCH (05:18)
[2016-11-09] MEDS: LISINOPRIL 10 MG TABLET PO SCH (09:15)
[2016-11-09] MEDS: INSULIN GLARGINE,HUM.REC.ANLOG 300 UNIT/3 ML INSULN.PEN SUBCUT SCH (09:15)
[2016-11-09] MEDS: METOPROLOL TARTRATE 25 MG TABLET PO SCH ×2 (09:29→21:07)
--- NOTE | 2016-11-09 09:29 | PDOC PROGRESS REPORT ---
Subjective Progress Note for:: 11/09/16 Subjective:: No reported chest pain or difficulty with breathing. No reported fever, nausea, vomiting or diarrhea. P.O intake satisfactory. No bowel movement in recent time. Remain on IV fluid support. I discussed cytology finding with Dr Hall, pathologist, yesterday.Awaiting more review of specimen for definite diagnosis but so far suspicious of carcinoma. Physical Exam Vital Signs: Temp Pulse Resp BP Pulse Ox 97.6 F 106 H 20 107/67 98 11/09/16 07:49 11/09/16 07:49 11/09/16 07:49 11/09/16 07:49 11/09/16 07:49 Intake & Output 11/08/16 11/09/16 11/10/16 06:59 06:59 06:59 Intake Total 2225 2473 Output Total 1250 2400 Balance 975 73 Weight 61.7 kg 62.9 kg General appearance: PRESENT: no acute distress, cooperative Head exam: PRESENT: atraumatic, normocephalic Eye exam: PRESENT: conjunctiva pink, EOMI, PERRLA Mouth exam: PRESENT: moist Respiratory exam: PRESENT: accessory muscle use, chest wall tenderness, clear to auscultation elisa, crackles, decreased breath sounds, prolonged expiratory phas, rales, retraction, rhonchi, stridor, symmetrical, tachypnea, unlabored, wheezes, other Cardiovascular exam: PRESENT: RRR. ABSENT: diastolic murmur, rubs, systolic murmur GI/Abdominal exam: PRESENT: normal bowel sounds, soft. ABSENT: distended, guarding, mass, organolmegaly, rebound, tenderness Extremities exam: PRESENT: full ROM Musculoskeletal exam: PRESENT: deformity - due to arthritis, other - generalized muscle wasting Neurological exam: PRESENT: alert, awake, CN II-XII grossly intact, motor sensory deficit, other - generalized decondition Psychiatric exam: PRESENT: appropriate affect, normal mood. ABSENT: agitated, anxious, depressed, flat affect, homicidal ideation, manic, suicidal ideation, unusual affect, other Skin exam: PRESENT: dry, intact, warm. ABSENT: cyanosis, rash Results Laboratory Results: 11/08/16 12:58 11/08/16 12:58 11/08/16 11/08/16 11/08/16 12:58 12:58 12:58 WBC 19.1 H RBC 4.08 Hgb 11.2 L Hct 36.3 MCV 89 MCH 27.4 MCHC 30.8 L RDW 14.6 H Plt Count 166 Seg Neutrophils % Not Reportable Lymphocytes % Not Reportable Monocytes % Not Reportable Eosinophils % Not Reportable Basophils % Not Reportable Absolute Neutrophils Not Reportable Absolute Lymphocytes Not Reportable Absolute Monocytes Not Reportable Absolute Eosinophils Not Reportable Absolute Basophils Not Reportable Sodium 139.3 Potassium 3.1 L Chloride 102 Carbon Dioxide 26 Anion Gap 11 BUN 19 Creatinine 0.69 Est GFR ( Amer) > 60 Est GFR (Non-Af Amer) > 60 Glucose 311 H Calcium 8.8 Magnesium 1.4 L Total Bilirubin 0.7 AST 155 H ALT 123 H Alkaline Phosphatase 193 H Total Protein 5.3 L Albumin 2.0 L 11/03/16 19:00 Blood Blood Culture - Final NO GROWTH IN 5 DAYS 11/03/16 17:36 Blood Blood Culture - Final NO GROWTH IN 5 DAYS 11/04/16 14:24 Pleural Fluid Gram Stain - Final 11/04/16 14:24 Pleural Fluid Body Fluid Culture - Final NO AEROBIC OR ANAEROBIC ORGANISMS RECOVERED Impressions: Thoracentesis Ultrasound 11/04/16 08:00 IMPRESSION: SUCCESSFUL THORACENTESIS USING ULTRASOUND GUIDANCE. Chest X-Ray 11/08/16 00:00 IMPRESSION: NO CHANGE IN APPEARANCE OF THE CHEST. Assessment & Plan - Diagnosis (1) SIRS due to infectious process with organ dysfunction Is this a current diagnosis for this admission?: YesPlan: Continue IV antibiotic coverage with Levofloxacin and Cefepime. Blood culture has been no growth x 5 days. Repeat CBC with diff in am. (2) Pleural effusion in other conditions classified elsewhere Is this a current diagnosis for this admission?: Yes (3) Mass of middle lobe of right lung Is this a current diagnosis for this admission?: YesPlan: Follow up on cytology final findings. Request oncology consultation with Dr Holland. (4) HTN (hypertension) Qualifiers: Hypertension type: essential hypertension Qualified Code(s): I10 - Essential (primary) hypertension Is this a current diagnosis for this admission?: Yes (5) HLD (hyperlipidemia) Qualifiers: Hyperlipidemia type: pure hypercholesterolemia Qualified Code(s): E78.00 - Pure hypercholesterolemia, unspecified; E78.0 - Pure hypercholesterolemia Is this a current diagnosis for this admission?: Yes (6) Diabetes mellitus, type 2 Qualifiers: Diabetes mellitus complication status: with hyperglycemia Is this a current diagnosis for this admission?: Yes (7) Dementia, senile Qualifiers: Dementia behavioral disturbance: without behavioral disturbance Qualified Code(s): F03.90 - Unspecified dementia without behavioral disturbance Is this a current diagnosis for this admission?: Yes (8) Depression Qualifiers: Depression Type: major depressive disorder Major depression recurrence : recurrent Active/Remission status: currently active Major depression episode severity: moderate Qualified Code(s): F33.1 - Major depressive disorder, recurrent, moderate Is this a current diagnosis for this admission?: Yes (9) Hypercalcemia of malignancy Is this a current diagnosis for this admission?: YesPlan: Maintain on IV fluid support. Obtain BMP in am. (10) Dehydration with hypernatremia Is this a current diagnosis for this admission?: YesPlan: Continue IV fluid support. Obtain BMP in AM. (11) Hypokalemia due to inadequate potassium intake Is this a current diagnosis for this admission?: Yes (12) Failure to thrive in adult Is this a current diagnosis for this admission?: Yes (13) Physical deconditioning Is this a current diagnosis for this admission?: Yes - Time Time Spent with patient: 25-34 minutes Medications reviewed and adjusted accordingly: Yes Anticipated discharge: Home with Homehealth Within: Other - Inpatient Certification Medical Necessity: Need Close Monitoring Due to Risk of Patient Decompensation, Need For IV Fluids, Need for IV Antibiotics, Risk of Complication if Not Cared For in Hospital Post Hospital Care: D/C Area Captain Documentation - Plan Summary Plan Summary: see attending physician orders.
[2016-11-09] MEDS: DRONABINOL 2.5 MG CAPSULE PO SCH (12:44)
[2016-11-09] MEDS ORDERED: LEVOFLOXACIN 250 MG/D5W RTU 250 MG/50 ML RTUPB IV SCH (18:00)
--- NOTE | 2016-11-09 18:13 | CONSULTATION REPORT E ---
Consultation Report NAME: KIRBY RAMIREZ : 1945 AGE: 71Y DATE: 11/09/2016 319 A TO: DANIELLE SCHULZ M.D. FROM: OLGA BARCENAS M.D. Requesting Physician REASON FOR REFERRAL: Lung cancer. CONSULTATION REPORT: The patient is a 71-year-old woman who was admitted into the hospital 11/03/2016 with fatigue, poor oral intake. She was found on a CT scan to have a right middle lobe mass with mediastinal adenopathy and a very large right pleural effusion. The pleural fluid cytology is said to be consistent with carcinoma. She is a chronic smoker. 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 She was doing well at home, had a little bit of dementia, however, was still functioning well up until about 2 weeks ago when she developed progressively worsening fatigue. Her tells me that at about that time she stopped smoking. She presently undergoing physical therapy in the hospital and has been on antibiotics. PAST MEDICAL HISTORY: Her past medical history as stated above includes history of right middle lobe mass that is now consistent with cancer. She has hyperlipidemia, high blood pressure, diabetes type 2, senile dementia. SOCIAL HISTORY: She worked as a [employer] ASSOC[employer]ATE at [employer], retired about 10 years ago. Lives with her . Smoked about a pack of cigarettes per day until just before admission. She has DNR STATUS. REVIEW OF SYSTEMS: Positive for significant weight loss, fatigue, generalized feeling of being unwell and body aches. PHYSICAL EXAMINATION: GENERAL: On exam, she is an elderly woman. She is resting peacefully in bed. DIAGNOSTIC TESTS: Her labs from 11/08/2016: Calcium 8.8, BUN 19, creatinine 0.69, sodium 139. Liver function tests: Normal bilirubin, total protein 5.3. Her white count 19.1, hemoglobin 11.2, platelet count 166. The patient had a CT scan of the chest 10/29/2016 that shows a right middle lobe bronchus occluded with right hilar mass, large right pleural effusion, no left pleural effusion, enlarged mediastinal lymph nodes. Liver lesion noted in the 10/27/2016 CT scan of the chest. CT abdomen 10/27/2016: Ill-defined 1 cm nodules are present in the left lobe of the liver non-specific. Pathology right pleural fluid: Suspicious for carcinoma. Special stains pending. IMPRESSION AND PLAN: The patient is a 71-year-old who presents with a right lung cancer with large right pleural effusion. Cytology said to be consistent with metastatic carcinoma. I will clarify with Pathology with regards to the subtype, small cell versus non-small cell. I had a long discussion with the at the bedside, explaining that she has an advanced lung cancer, possibly stage IV. If the liver lesions are consistent with cancer, would at least definitely a stage III because of the positive pleural fluid. I explained that surgery was not an option. At this time, radiation is not indicated. The treatment will be palliative chemotherapy. I explained that the stage of this cancer was not curable but could be palliated with systemic chemotherapy. He will discuss this with her daughter and also with the patient. They will come to the office tomorrow to discuss this further with me with regard to the treatment versus no treatment. If she is inclined to receive chemotherapy, then she might her first dose prior to being discharged from the hospital. I thank you for this consultation and allowing me to be part of her care. DICTATING PHYSICIAN: DANIELLE SCHULZ M.D. [id number] PHY#: [id number] ID: [id number] JOB#: [id number] ACCT: [id number] cc:DANIELLE SCHULZ M.D. >
[2016-11-09] MEDS: CEFEPIME 1 GM/D5W RTU 1 GM/50 ML RTUPB IV SCH (21:08)
[2016-11-10] MEDS: INSULIN LISPRO 100 UNIT/ML 3 ML VIAL SUBCUT PRN ×4 (00:22→17:41)
[2016-11-10] MEDS: DEXTROSE 5%-WATER 1000 ML 1,000 ML IV PRN ×2 (01:27→13:33)
[2016-11-10] MEDS: LANSOPRAZOLE 30 MG TAB.RAP.DR PO SCH (06:05)
[2016-11-10] MEDS: METOPROLOL TARTRATE 25 MG TABLET PO SCH ×2 (09:47→23:05)
[2016-11-10] MEDS: LISINOPRIL 10 MG TABLET PO SCH (09:47)
[2016-11-10] MEDS: INSULIN GLARGINE,HUM.REC.ANLOG 300 UNIT/3 ML INSULN.PEN SUBCUT SCH (09:52)
[2016-11-10 10:05] LABS: HEMATOCRIT 36.7 % (36.0-47.0); HEMOGLOBIN 11.4 g/dL (12.0-15.5); HGB HCT DIFFERENCE -2.5; MEAN CORPUSCULAR HEMOGLOBIN 27.2 pg (27.0-33.4); MEAN CORPUSCULAR VOLUME 88 fl (80-97); RED CELL DISTRIBUTION WIDTH 14.5 % (11.5-14.0); WHITE BLOOD COUNT 23.8 10^3/uL (4.0-10.5)
[2016-11-10 10:06] LABS: ALANINE AMINOTRANSFERASE 71 U/L (9-52); ALBUMIN 2.3 g/dL (3.5-5.0); ALKALINE PHOSPHATASE 183 U/L (38-126); ANION GAP 11 (5-19); ASPARTATE AMINO TRANSFERASE 39 U/L (14-36); BILIRUBIN,TOTAL 0.7 mg/dL (0.2-1.3); BLOOD UREA NITROGEN 11 mg/dL (7-20); CALCIUM 8.3 mg/dL (8.4-10.2); CARBON DIOXIDE 26 mmol/L (22-30); CHLORIDE 101 mmol/L (98-107); CREATININE RESULT 0.67 mg/dL (0.52-1.25); GLUCOSE 172 mg/dL (75-110); POTASSIUM 3.3 mmol/L (3.6-5.0); SODIUM 137.7 mmol/L (137-145); TOTAL PROTEIN 5.7 g/dL (6.3-8.2)
[2016-11-10 10:38] LABS: BAND NEUTROPHILS % (MANUAL) 3 % (3-5); BASOPHILS % (MANUAL) 0 % (0-2); EOSINOPHILS % (MANUAL) 0 % (0-6); LYMPHOCYTES % (MANUAL) 5 % (13-45); POLYCHROMASIA SLIGHT; TOTAL CELLS COUNTED 100; TOXIC GRANULATION SLIGHT
[2016-11-10] MEDS: DRONABINOL 2.5 MG CAPSULE PO SCH (13:33)
[2016-11-10] MEDS ORDERED: VANCOMYCIN HCL 0 MG in DEXTROSE 5%-WATER 250 ML IV NR (13:45)
[2016-11-10] MEDS: POTASSIUM CHLORIDE 20 MEQ/15 ML UDCUP PO SCH ×2 (14:08→17:40)
--- NOTE | 2016-11-10 14:09 | PDOC PROGRESS REPORT ---
Subjective Progress Note for:: 11/10/16 Subjective:: No reported chest pain or difficulty with breathing. No reported fever, nausea, vomiting or diarrhea. P.O intake remain a challenge. Remain on IV fluid support. I discussed her pleural fluid cytology findings with Dr Hall since last clinical evaluation. It did revealed metastatic carcinoma, primary source most likely lung in view of her radiographic findings and significant history of cigarette smoking. Dr Holland, medical oncologist input noted. Physical Exam Vital Signs: Temp Pulse Resp BP Pulse Ox 98.1 F 117 H 16 95/55 L 97 11/10/16 11:23 11/10/16 11:23 11/10/16 11:23 11/10/16 11:23 11/10/16 11:23 Intake & Output 11/09/16 11/10/16 11/11/16 06:59 06:59 06:59 Intake Total 2473 2691 Output Total 2400 2100 Balance 73 591 Weight 62.9 kg 62 kg General appearance: PRESENT: no acute distress, cooperative, other - generalized deconditioning Head exam: PRESENT: atraumatic, normocephalic Eye exam: PRESENT: conjunctiva pink, EOMI, PERRLA Mouth exam: PRESENT: moist - fairly Respiratory exam: PRESENT: decreased breath sounds - bibasilar and lower right lung zone. Cardiovascular exam: PRESENT: RRR. ABSENT: diastolic murmur, rubs, systolic murmur GI/Abdominal exam: PRESENT: normal bowel sounds, soft. ABSENT: distended, guarding, mass, organolmegaly, rebound, tenderness Extremities exam: PRESENT: full ROM Musculoskeletal exam: PRESENT: full ROM, other - generalized muscle wasting Neurological exam: PRESENT: alert, awake - disoriented to place and time Psychiatric exam: PRESENT: appropriate affect, normal mood. ABSENT: homicidal ideation, suicidal ideation Skin exam: PRESENT: dry, intact, warm. ABSENT: cyanosis, rash Results Laboratory Results: 11/10/16 09:35 11/10/16 09:35 11/10/16 11/10/16 09:35 09:35 WBC 23.8 H RBC 4.20 Hgb 11.4 L Hct 36.7 MCV 88 MCH 27.2 MCHC 31.0 L RDW 14.5 H Plt Count 203 Seg Neutrophils % Not Reportable Lymphocytes % Not Reportable Monocytes % Not Reportable Eosinophils % Not Reportable Basophils % Not Reportable Absolute Neutrophils Not Reportable Absolute Lymphocytes Not Reportable Absolute Monocytes Not Reportable Absolute Eosinophils Not Reportable Absolute Basophils Not Reportable Sodium 137.7 Potassium 3.3 L Chloride 101 Carbon Dioxide 26 Anion Gap 11 BUN 11 Creatinine 0.67 Est GFR ( Amer) > 60 Est GFR (Non-Af Amer) > 60 Glucose 172 H Calcium 8.3 L Total Bilirubin 0.7 AST 39 H ALT 71 H Alkaline Phosphatase 183 H Total Protein 5.7 L Albumin 2.3 L 11/04/16 14:24 Pleural Fluid AFB Smear Concentration - Final 11/04/16 14:24 Pleural Fluid Acid Fast Bacilli Smear - Final Impressions: Thoracentesis Ultrasound 11/04/16 08:00 IMPRESSION: SUCCESSFUL THORACENTESIS USING ULTRASOUND GUIDANCE. Chest X-Ray 11/08/16 00:00 IMPRESSION: NO CHANGE IN APPEARANCE OF THE CHEST. Assessment & Plan - Diagnosis (1) SIRS due to infectious process with organ dysfunction Is this a current diagnosis for this admission?: YesPlan: I will d/c Levofloxacin and Cefepime in view of worsening leukocytosis despite therapy since admission. I am concern about possible post obstructive pneumonia. I will start patient on IV Primaxin and Vancomycin. We will monitor CBC with diff in am. (2) Pleural effusion in other conditions classified elsewhere Is this a current diagnosis for this admission?: Yes (3) Mass of middle lobe of right lung Is this a current diagnosis for this admission?: Yes (4) HTN (hypertension) Qualifiers: Hypertension type: essential hypertension Qualified Code(s): I10 - Essential (primary) hypertension Is this a current diagnosis for this admission?: YesPlan: Continue current medication management with possible need for dosage adjustment if blood pressure remain persistently low. (5) HLD (hyperlipidemia) Qualifiers: Hyperlipidemia type: pure hypercholesterolemia Qualified Code(s): E78.00 - Pure hypercholesterolemia, unspecified; E78.0 - Pure hypercholesterolemia Is this a current diagnosis for this admission?: Yes (6) Diabetes mellitus, type 2 Qualifiers: Diabetes mellitus complication status: with hyperglycemia Is this a current diagnosis for this admission?: YesPlan: MAintain on current management regimen with accucheck and Humalog sliding scale coverage. I will start on nutritional supplementation with Glucena shake. (7) Dementia, senile Qualifiers: Dementia behavioral disturbance: without behavioral disturbance Qualified Code(s): F03.90 - Unspecified dementia without behavioral disturbance Is this a current diagnosis for this admission?: Yes (8) Depression Qualifiers: Depression Type: major depressive disorder Major depression recurrence : recurrent Active/Remission status: currently active Major depression episode severity: moderate Qualified Code(s): F33.1 - Major depressive disorder, recurrent, moderate Is this a current diagnosis for this admission?: Yes (9) Hypercalcemia of malignancy Is this a current diagnosis for this admission?: YesPlan: Maintain on IV fluid support. Patient responded to pamidronate therapy. Her current low calcium may be related to hypoalbuminemia. Obtain BMP in am. (10) Dehydration with hypernatremia Is this a current diagnosis for this admission?: Yes (11) Hypokalemia due to inadequate potassium intake Is this a current diagnosis for this admission?: YesPlan: Patient will receive IV potassium chloride 40mEq p.o [id number] x 2 doses. I will request serum magnesium level and replace if indicated. We will repeat BMP in am. (12) Failure to thrive in adult Is this a current diagnosis for this admission?: YesPlan: Continue to encourage increase p.o intake. Maintain on Marinol 2.5 mg p.o pre Lunch daily. Start on Glucena shake 1 can per meal. Change dietary restriction to carb level 4 due to her diabetes mellitus status. (13) Physical deconditioning Is this a current diagnosis for this admission?: Yes (14) Metastatic carcinoma Is this a current diagnosis for this admission?: YesPlan: Metastatic carcinoma, most likely primary in the lung with pleural involvement. Dr. Holland had extensive discussion with spouse since last clinical evaluation. He will discuss with family and get back to us. Patient function status level at present is poor. I will follow up with physical therapy request for intervention. - Time Time Spent with patient: 25-34 minutes Medications reviewed and adjusted accordingly: Yes Anticipated discharge: Home with Homehealth - Inpatient Certification Based on my medical assessment, after consideration of the patient's comorbidities, presenting symptoms, or acuity I expect that the services needed warrant INPATIENT care.: Yes I certify that my determination is in accordance with my understanding of Medicare's requirements for reasonable and necessary INPATIENT services [42 CFR 412.3e].: Yes Medical Necessity: Need Close Monitoring Due to Risk of Patient Decompensation, Need For IV Fluids, Need For Continuous Telemetry Monitoring, Need for IV Antibiotics, Risk of Complication if Not Cared For in Hospital Post Hospital Care: D/C Passport Support Associate Documentation - Plan Summary Plan Summary: see attending physician orders.
[2016-11-10] MEDS: IMIPENEM/CILASTATIN SODIUM 500 MG in NORMAL SALINE 100 ML IV SCH ×2 (16:26→21:04)
[2016-11-10] MEDS: VANCOMYCIN HCL 1,250 MG in DEXTROSE 5%-WATER 250 ML IV SCH (17:38)
[2016-11-11] MEDS: INSULIN LISPRO 100 UNIT/ML 3 ML VIAL SUBCUT PRN ×5 (01:26→18:50)
[2016-11-11] MEDS: IMIPENEM/CILASTATIN SODIUM 500 MG in NORMAL SALINE 100 ML IV SCH ×4 (02:29→22:02)
[2016-11-11] MEDS ORDERED: NORMAL SALINE IV PRN ×2 (05:00)
[2016-11-11] MEDS ORDERED: IRINOTECAN HCL IV PRN (05:00)
[2016-11-11] MEDS ORDERED: CARBOPLATIN IV PRN (05:00)
[2016-11-11] MEDS ORDERED: ONDANSETRON HCL/PF 16 MG, DEXAMETHASONE SOD PHOSPHATE 20 MG in NORMAL SALINE 50 ML IV PRN (05:00)
[2016-11-11] MEDS ORDERED: NORMAL SALINE 250 ML IV PRN (05:00)
[2016-11-11] MEDS ORDERED: ATROPINE SULFATE INJ 0.4 MG/1 ML VIAL IV PRN (05:00)
[2016-11-11] MEDS: LANSOPRAZOLE 30 MG TAB.RAP.DR PO SCH (05:38)
[2016-11-11] MEDS: DEXTROSE 5%-WATER 1000 ML 1,000 ML IV PRN (06:03)
[2016-11-11 06:14] LABS: HEMATOCRIT 33.9 % (36.0-47.0); HEMOGLOBIN 10.7 g/dL (12.0-15.5); HGB HCT DIFFERENCE -1.8; MEAN CORPUSCULAR HEMOGLOBIN 27.5 pg (27.0-33.4); MEAN CORPUSCULAR HGB CONC 31.5 g/dL (32.0-36.0); MEAN CORPUSCULAR VOLUME 87 fl (80-97); RED BLOOD COUNT 3.88 10^6/uL (3.72-5.28); RED CELL DISTRIBUTION WIDTH 14.6 % (11.5-14.0); WHITE BLOOD COUNT 22.9 10^3/uL (4.0-10.5)
[2016-11-11 06:28] LABS: ALANINE AMINOTRANSFERASE 60 U/L (9-52); ALBUMIN 1.9 g/dL (3.5-5.0); ALKALINE PHOSPHATASE 181 U/L (38-126); ANION GAP 11 (5-19); ASPARTATE AMINO TRANSFERASE 35 U/L (14-36); BILIRUBIN,TOTAL 0.5 mg/dL (0.2-1.3); BLOOD UREA NITROGEN 12 mg/dL (7-20); CALCIUM 7.7 mg/dL (8.4-10.2); CARBON DIOXIDE 27 mmol/L (22-30); CHLORIDE 99 mmol/L (98-107); CREATININE RESULT 0.68 mg/dL (0.52-1.25); GLUCOSE 174 mg/dL (75-110); POTASSIUM 3.5 mmol/L (3.6-5.0); SODIUM 136.5 mmol/L (137-145); TOTAL PROTEIN 5.2 g/dL (6.3-8.2)
[2016-11-11 06:53] LABS: BASOPHILS % (MANUAL) 0 % (0-2); EOSINOPHILS % (MANUAL) 1 % (0-6); LYMPHOCYTES % (MANUAL) 2 % (13-45); TOTAL CELLS COUNTED 100
[2016-11-11 06:54] LABS: ANISOCYTOSIS SLIGHT; OVALOCYTES SLIGHT; TOXIC VACUOLATION PRESENT
[2016-11-11 06:58] LABS: CARCINOEMBRYONIC ANTIGEN 29.6 ng/mL (<3.0)
[2016-11-11] MEDS: LISINOPRIL 10 MG TABLET PO SCH (09:13)
[2016-11-11] MEDS: INSULIN GLARGINE,HUM.REC.ANLOG 300 UNIT/3 ML INSULN.PEN SUBCUT SCH (09:14)
[2016-11-11] MEDS: METOPROLOL TARTRATE 25 MG TABLET PO SCH (09:14)
--- NOTE | 2016-11-11 09:53 | PROGRESS NOTE E ---
Progress Note NAME: KIRBY RAMIREZ : 1945 AGE: 71Y DATE: 11/11/2016 ROOM: 319 SUBJECTIVE: The patient was seen at the bedside, she was sitting up in bed eating breakfast, she was being fed. She states that she is having some pain on the left side radiating down her left arm. She has no headaches, no abdominal pain. OBJECTIVE: GENERAL: On exam, she is an elderly woman. She looks comfortable in bed. EXTREMITIES: She is tender over the left upper extremity, but she appears to be tender all over. ABDOMEN: Soft. Liver and spleen not enlarged. LABORATORY: Her labs from 11/11: White count is 22.9, hemoglobin 10.7, platelet count is 200. Sodium is 136, potassium 3.5, calcium is 7.7, alkaline phosphatase 181, *------* 29.6. CAT scan of the head done 11/10 shows extensive white matter disease, no abnormal brain parenchymal enlargement worrisome for metastatic disease. CAT scan soft tissue of the neck shows no bulky neck masses or adenopathy, stable lymph nodes at the thoracic inlet in the upper mediastinum as discussed on the prior CT of the chest 10/29/2016. IMPRESSION AND PLAN: THE PATIENT IS A 71-YEAR-OLD WOMAN WHO RECENTLY WAS DIAGNOSED WITH SQUAMOUS CELL LUNG CANCER. THIS WAS FROM A PLEURAL FLUID OBTAINED FROM HER RIGHT LUNG. I previously had a long discussion with the family members and also with the patient this morning. She is interested in treatment. The plan is to start her on palliative chemotherapy using Camptosar and carboplatin. She will receive the first dose today in the hospital. The side effects were reviewed both with the patient as well as the family members to include hair loss, pancytopenia with the risk of neutropenic fever, anemia and thrombocytopenia that might necessitate the use of growth factors or blood transfusion, peripheral neuropathy, diarrhea. She is interested in treatment and will be started on treatment today. Hopefully, over the next few days, with rehab, she will be able to be discharged and she will receive week 2 next week in the office. Once again, I thank you for this consultation and allowing me to be part of her care. DICTATING PHYSICIAN: DANIELLE SCHULZ M.D. [id number] PHY#: [id number] ID: [id number] JOB#: [id number] ACCT: [id number] cc: >
[2016-11-11] MEDS: DRONABINOL 2.5 MG CAPSULE PO SCH (10:52)
--- NOTE | 2016-11-11 13:36 | PDOC PROGRESS REPORT ---
Subjective Progress Note for:: 11/11/16 Subjective:: No reported chest pain or difficulty with breathing. No reported fever, nausea, vomiting or diarrhea. Tolerated better P.O intake this morning. Remain on IV fluid support. I discussed her case with Dr Holland, medical oncologist, regarding further treatment of her newly diagnosed metastatic squamous cell lung cancer. Her head and cervical CT scans did not revealed any metastatic disease process. Physical Exam Vital Signs: Temp Pulse Resp BP Pulse Ox 98.5 F 112 H 16 113/68 100 11/11/16 07:43 11/11/16 08:19 11/11/16 07:43 11/11/16 07:43 11/11/16 07:43 Intake & Output 11/10/16 11/11/16 11/12/16 06:59 06:59 06:59 Intake Total 2691 2477 461 Output Total 2100 2150 Balance 591 327 461 Weight 62 kg 64.6 kg General appearance: PRESENT: no acute distress, cooperative Head exam: PRESENT: atraumatic, normocephalic Eye exam: PRESENT: conjunctiva pink, EOMI, PERRLA Mouth exam: PRESENT: moist Neck exam: PRESENT: full ROM. ABSENT: carotid bruit, JVD, lymphadenopathy, thyromegaly Respiratory exam: PRESENT: decreased breath sounds - at lung bases.. ABSENT: accessory muscle use, chest wall tenderness, clear to auscultation elisa, crackles , prolonged expiratory phas, rales, retraction, rhonchi, stridor, symmetrical, tachypnea, unlabored, wheezes, other Cardiovascular exam: PRESENT: RRR. ABSENT: diastolic murmur, rubs, systolic murmur GI/Abdominal exam: PRESENT: normal bowel sounds, soft. ABSENT: distended, guarding, mass, organolmegaly, rebound, tenderness Extremities exam: PRESENT: full ROM - limited across left shoulder joint due to elicited tendernes Musculoskeletal exam: PRESENT: deformity - multiple joints due to arthritis process involvement, tenderness - left shoulder joint with movement Neurological exam: PRESENT: alert, awake, oriented to person, oriented to place , CN II-XII grossly intact Psychiatric exam: PRESENT: appropriate affect, normal mood. ABSENT: homicidal ideation, suicidal ideation Skin exam: PRESENT: dry, intact, warm. ABSENT: cyanosis, rash Results Laboratory Results: 11/11/16 05:43 11/11/16 05:43 11/10/16 11/11/16 11/11/16 09:35 05:43 05:43 WBC 22.9 H RBC 3.88 Hgb 10.7 L Hct 33.9 L MCV 87 MCH 27.5 MCHC 31.5 L RDW 14.6 H Plt Count 200 Seg Neutrophils % Not Reportable Lymphocytes % Not Reportable Monocytes % Not Reportable Eosinophils % Not Reportable Basophils % Not Reportable Absolute Neutrophils Not Reportable Absolute Lymphocytes Not Reportable Absolute Monocytes Not Reportable Absolute Eosinophils Not Reportable Absolute Basophils Not Reportable Sodium 136.5 L Potassium 3.5 L Chloride 99 Carbon Dioxide 27 Anion Gap 11 BUN 12 Creatinine 0.68 Est GFR ( Amer) > 60 Est GFR (Non-Af Amer) > 60 Glucose 174 H Calcium 7.7 L Magnesium 1.8 Total Bilirubin 0.5 AST 35 ALT 60 H Alkaline Phosphatase 181 H Total Protein 5.2 L Albumin 1.9 L Impressions: Thoracentesis Ultrasound 11/04/16 08:00 IMPRESSION: SUCCESSFUL THORACENTESIS USING ULTRASOUND GUIDANCE. Chest X-Ray 11/08/16 00:00 IMPRESSION: NO CHANGE IN APPEARANCE OF THE CHEST. Head CT 11/10/16 00:00 IMPRESSION: Extensive white matter disease. No abnormal brain parenchymal enhancement worrisome for metastatic disease Soft Tissue Neck CT 11/10/16 00:00 IMPRESSION: No bulky neck masses or adenopathy. Stable lymph nodes at the thoracic inlet and upper mediastinum as compared to CT chest 10/29/2016. Assessment & Plan - Diagnosis (1) SIRS due to infectious process with organ dysfunction Is this a current diagnosis for this admission?: Yes (2) Pleural effusion in other conditions classified elsewhere Is this a current diagnosis for this admission?: Yes (3) Mass of middle lobe of right lung Is this a current diagnosis for this admission?: Yes (4) HTN (hypertension) Qualifiers: Hypertension type: essential hypertension Qualified Code(s): I10 - Essential (primary) hypertension Is this a current diagnosis for this admission?: Yes (5) HLD (hyperlipidemia) Qualifiers: Hyperlipidemia type: pure hypercholesterolemia Qualified Code(s): E78.00 - Pure hypercholesterolemia, unspecified; E78.0 - Pure hypercholesterolemia Is this a current diagnosis for this admission?: Yes (6) Diabetes mellitus, type 2 Qualifiers: Diabetes mellitus complication status: with hyperglycemia Diabetes mellitus terminal makeup operator insulin use: without detention use Qualified Code(s): E11.65 - Type 2 diabetes mellitus with hyperglycemia Is this a current diagnosis for this admission?: YesPlan: Start on Metformin 250 mg p.o bid ACBS. Monitor and adjust medication dosage as per glycemic control and oral intake in the future. (7) Dementia, senile Qualifiers: Dementia behavioral disturbance: without behavioral disturbance Qualified Code(s): F03.90 - Unspecified dementia without behavioral disturbance Is this a current diagnosis for this admission?: Yes (8) Depression Qualifiers: Depression Type: major depressive disorder Major depression recurrence : recurrent Active/Remission status: currently active Major depression episode severity: moderate Qualified Code(s): F33.1 - Major depressive disorder, recurrent, moderate Is this a current diagnosis for this admission?: Yes (9) Hypercalcemia of malignancy Is this a current diagnosis for this admission?: Yes (10) Dehydration with hypernatremia Is this a current diagnosis for this admission?: Yes (11) Hypokalemia due to inadequate potassium intake Is this a current diagnosis for this admission?: Yes (12) Failure to thrive in adult Is this a current diagnosis for this admission?: Yes (13) Physical deconditioning Is this a current diagnosis for this admission?: Yes (14) Metastatic carcinoma Is this a current diagnosis for this admission?: Yes (15) Primary squamous cell carcinoma of lung Is this a current diagnosis for this admission?: YesPlan: As per Dr Holland directive. Please review her dictated note for more information. - Time Time Spent with patient: 25-34 minutes Medications reviewed and adjusted accordingly: Yes Anticipated discharge: Home with Homehealth Within: Other - Inpatient Certification Medical Necessity: Need Close Monitoring Due to Risk of Patient Decompensation, Need For IV Fluids, Need for IV Antibiotics, Risk of Complication if Not Cared For in Hospital Post Hospital Care: D/C Middleware Developer Documentation - Plan Summary Plan Summary: See attending orders for details.
[2016-11-11] MEDS: METFORMIN HCL 500 MG TABLET PO SCH (15:11)
[2016-11-11] MEDS: VANCOMYCIN HCL 1,250 MG in DEXTROSE 5%-WATER 250 ML IV SCH (16:34)
[2016-11-12] MEDS: INSULIN LISPRO 100 UNIT/ML 3 ML VIAL SUBCUT PRN ×4 (01:11→18:14)
[2016-11-12] MEDS: METOPROLOL TARTRATE 25 MG TABLET PO SCH ×2 (01:14→10:13)
[2016-11-12] MEDS: IMIPENEM/CILASTATIN SODIUM 500 MG in NORMAL SALINE 100 ML IV SCH ×4 (03:29→21:53)
[2016-11-12] MEDS: LANSOPRAZOLE 30 MG TAB.RAP.DR PO SCH (06:50)
[2016-11-12] MEDS: DEXTROSE 5%-WATER 1000 ML 1,000 ML IV PRN (07:51)
[2016-11-12] MEDS: METFORMIN HCL 500 MG TABLET PO SCH ×2 (07:55→16:07)
[2016-11-12] MEDS: DRONABINOL 2.5 MG CAPSULE PO SCH (10:13)
[2016-11-12] MEDS: LISINOPRIL 10 MG TABLET PO SCH (10:13)
[2016-11-12] MEDS: INSULIN GLARGINE,HUM.REC.ANLOG 300 UNIT/3 ML INSULN.PEN SUBCUT SCH (10:14)
[2016-11-12] MEDS: OXYCODONE HCL IR 5 MG TABLET PO PRN (15:19)
--- NOTE | 2016-11-12 15:26 | PDOC PROGRESS REPORT ---
Subjective Progress Note for:: 11/12/16 Subjective:: No reported chest pain or difficulty with breathing. No reported fever, nausea, vomiting or diarrhea. Tolerating better P.O intake with feeding assistance. Maintain on IV fluid support. Patient had first dose of chemotherapy yesterday. Spouse emphatically refused any recommendation for fpc facility placement. Physical Exam Vital Signs: Temp Pulse Resp BP Pulse Ox 97.7 F 105 H 21 H 99/66 L 95 11/12/16 12:40 11/12/16 12:40 11/12/16 12:40 11/12/16 12:40 11/12/16 12:40 Intake & Output 11/11/16 11/12/16 11/13/16 06:59 06:59 06:59 Intake Total 2477 2764 237 Output Total 2150 1300 600 Balance 327 1464 -363 Weight 64.6 kg 66.9 kg General appearance: PRESENT: no acute distress, cooperative Head exam: PRESENT: atraumatic, normocephalic Eye exam: PRESENT: conjunctiva pink, EOMI, PERRLA Mouth exam: PRESENT: moist Respiratory exam: PRESENT: decreased breath sounds - at lung bases. ABSENT: accessory muscle use, chest wall tenderness, clear to auscultation elisa, crackles , prolonged expiratory phas, rales, retraction, rhonchi, stridor, symmetrical, tachypnea, unlabored, wheezes, other Cardiovascular exam: PRESENT: irregular rhythm, tachycardia. ABSENT: bradycardia, clicks, diastolic murmur, gallop, RRR, rubs, +S1, +S2, systolic murmur, other GI/Abdominal exam: PRESENT: normal bowel sounds, soft. ABSENT: distended, guarding, mass, organolmegaly, rebound, tenderness Extremities exam: PRESENT: full ROM Musculoskeletal exam: PRESENT: deformity, full ROM Neurological exam: PRESENT: alert, awake, oriented to person, oriented to place , other - generalized deconditioning. Psychiatric exam: PRESENT: appropriate affect, normal mood. ABSENT: homicidal ideation, suicidal ideation Skin exam: PRESENT: dry, intact, warm. ABSENT: cyanosis, rash Results Laboratory Results: 11/11/16 05:43 11/11/16 05:43 Impressions: Thoracentesis Ultrasound 11/04/16 08:00 IMPRESSION: SUCCESSFUL THORACENTESIS USING ULTRASOUND GUIDANCE. Chest X-Ray 11/08/16 00:00 IMPRESSION: NO CHANGE IN APPEARANCE OF THE CHEST. Head CT 11/10/16 00:00 IMPRESSION: Extensive white matter disease. No abnormal brain parenchymal enhancement worrisome for metastatic disease Soft Tissue Neck CT 11/10/16 00:00 IMPRESSION: No bulky neck masses or adenopathy. Stable lymph nodes at the thoracic inlet and upper mediastinum as compared to CT chest 10/29/2016. Shoulder X-Ray 11/11/16 00:00 IMPRESSION: No acute fracture or dislocation identified. Degenerative changes of the acromioclavicular and glenohumeral joints noted. Assessment & Plan - Diagnosis (1) SIRS due to infectious process with organ dysfunction Is this a current diagnosis for this admission?: YesPlan: She would be maintained on IV Primaxin and Vancomycin. We will monitor CBC with diff in am. Other consideration on Leukocytosis include possible contribution from her lung cancer (2) Pleural effusion in other conditions classified elsewhere Is this a current diagnosis for this admission?: Yes (3) Mass of middle lobe of right lung Is this a current diagnosis for this admission?: Yes (4) HTN (hypertension) Qualifiers: Hypertension type: essential hypertension Qualified Code(s): I10 - Essential (primary) hypertension Is this a current diagnosis for this admission?: Yes (5) HLD (hyperlipidemia) Qualifiers: Hyperlipidemia type: pure hypercholesterolemia Qualified Code(s): E78.00 - Pure hypercholesterolemia, unspecified; E78.0 - Pure hypercholesterolemia Is this a current diagnosis for this admission?: Yes (6) Diabetes mellitus, type 2 Qualifiers: Diabetes mellitus complication status: with hyperglycemia Diabetes mellitus moth exterminator insulin use: without moth exterminator use Qualified Code(s): E11.65 - Type 2 diabetes mellitus with hyperglycemia; Z79.4 - termite control servicer (current ) use of insulin Is this a current diagnosis for this admission?: Yes (7) Dementia, senile Qualifiers: Dementia behavioral disturbance: without behavioral disturbance Qualified Code(s): F03.90 - Unspecified dementia without behavioral disturbance Is this a current diagnosis for this admission?: Yes (8) Depression Qualifiers: Depression Type: major depressive disorder Major depression recurrence : recurrent Active/Remission status: currently active Major depression episode severity: moderate Qualified Code(s): F33.1 - Major depressive disorder, recurrent, moderate Is this a current diagnosis for this admission?: Yes (9) Hypercalcemia of malignancy Is this a current diagnosis for this admission?: Yes (10) Dehydration with hypernatremia Is this a current diagnosis for this admission?: Yes (11) Hypokalemia due to inadequate potassium intake Is this a current diagnosis for this admission?: Yes (12) Failure to thrive in adult Is this a current diagnosis for this admission?: Yes (13) Physical deconditioning Is this a current diagnosis for this admission?: Yes (14) Metastatic carcinoma Is this a current diagnosis for this admission?: Yes (15) Primary squamous cell carcinoma of lung Is this a current diagnosis for this admission?: Yes (16) Shoulder pain, left Is this a current diagnosis for this admission?: Yes - Time Time Spent with patient: 25-34 minutes Medications reviewed and adjusted accordingly: Yes Anticipated discharge: Home with Homehealth Within: Other - Inpatient Certification Based on my medical assessment, after consideration of the patient's comorbidities, presenting symptoms, or acuity I expect that the services needed warrant INPATIENT care.: Yes I certify that my determination is in accordance with my understanding of Medicare's requirements for reasonable and necessary INPATIENT services [42 CFR 412.3e].: Yes Medical Necessity: Need Close Monitoring Due to Risk of Patient Decompensation, Need For IV Fluids, Need for Pain Control, Need for IV Antibiotics, Risk of Complication if Not Cared For in Hospital - Plan Summary Plan Summary: see attending physician orders
[2016-11-12] MEDS: VANCOMYCIN HCL 1,250 MG in DEXTROSE 5%-WATER 250 ML IV SCH (16:07)
[2016-11-12] MEDS: METOPROLOL TARTRATE 50 MG TABLET PO SCH (21:55)
[2016-11-13] MEDS: INSULIN LISPRO 100 UNIT/ML 3 ML VIAL SUBCUT PRN ×2 (02:04→12:56)
[2016-11-13] MEDS: DEXTROSE 5%-WATER 1000 ML 1,000 ML IV PRN ×2 (02:19→14:45)
[2016-11-13] MEDS: IMIPENEM/CILASTATIN SODIUM 500 MG in NORMAL SALINE 100 ML IV SCH ×3 (02:20→14:45)
[2016-11-13] MEDS: LANSOPRAZOLE 30 MG TAB.RAP.DR PO SCH (06:20)
[2016-11-13] MEDS: METFORMIN HCL 500 MG TABLET PO SCH ×2 (07:45→15:11)
[2016-11-13] MEDS: OXYCODONE HCL IR 5 MG TABLET PO PRN (08:07)
[2016-11-13] MEDS: INSULIN GLARGINE,HUM.REC.ANLOG 300 UNIT/3 ML INSULN.PEN SUBCUT SCH (09:49)
[2016-11-13] MEDS: METOPROLOL TARTRATE 50 MG TABLET PO SCH (09:53)
[2016-11-13] MEDS: LISINOPRIL 10 MG TABLET PO SCH (09:55)
[2016-11-13] MEDS ORDERED: LISINOPRIL 10 MG TABLET PO SCH (10:00)
[2016-11-13] MEDS: DRONABINOL 2.5 MG CAPSULE PO SCH (10:48)
[2016-11-13] MEDS ORDERED: LORAZEPAM INJ 2 MG/1 ML VIAL IV PRN ×2 (16:06→18:07)
[2016-11-13] MEDS: VANCOMYCIN HCL 1,250 MG in DEXTROSE 5%-WATER 250 ML IV SCH (17:48)
[2016-11-13] MEDS ORDERED: MORPHINE SULFATE 10 MG/ML INJ IV PRN (17:52)
--- NOTE | 2016-11-13 18:00 | PDOC PROGRESS REPORT ---
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 She was incoherent blood pressure was low and that was sinus tachycardia. Patient condition is poor. Family opted to make her comfort care measure Physical Exam Vital Signs: Temp Pulse Resp BP Pulse Ox 97.5 F 76 20 47/39 L 95 11/13/16 16:22 11/13/16 16:30 11/13/16 16:22 11/13/16 16:30 11/13/16 16:30 Intake & Output 11/12/16 11/13/16 11/14/16 06:59 06:59 06:59 Intake Total 2764 2662 1449 Output Total 1300 2050 400 Balance 8496 014 4603 Weight 66.9 kg 63.5 kg General appearance: PRESENT: severe distress Respiratory exam: PRESENT: crackles Cardiovascular exam: PRESENT: +S1, +S2 GI/Abdominal exam: PRESENT: soft Results Laboratory Results: 11/11/16 05:43 Impressions: Thoracentesis Ultrasound 11/04/16 08:00 IMPRESSION: SUCCESSFUL THORACENTESIS USING ULTRASOUND GUIDANCE. Chest X-Ray 11/08/16 00:00 IMPRESSION: NO CHANGE IN APPEARANCE OF THE CHEST. Head CT 11/10/16 00:00 IMPRESSION: Extensive white matter disease. No abnormal brain parenchymal enhancement worrisome for metastatic disease Soft Tissue Neck CT 11/10/16 00:00 IMPRESSION: No bulky neck masses or adenopathy. Stable lymph nodes at the thoracic inlet and upper mediastinum as compared to CT chest 10/29/2016. Shoulder X-Ray 11/11/16 00:00 IMPRESSION: No acute fracture or dislocation identified. Degenerative changes of the acromioclavicular and glenohumeral joints noted. Assessment & Plan - Diagnosis (1) Metastatic malignant neoplasm to lung Qualifiers: Laterality: unspecified laterality Qualified Code(s): C78.00 - Secondary malignant neoplasm of unspecified lung Is this a current diagnosis for this admission?: Yes (2) Respiratory distress Is this a current diagnosis for this admission?: Yes (3) Hypotension Qualifiers: Hypotension type: unspecified hypotension type Qualified Code(s): I95.9 - Hypotension, unspecified Is this a current diagnosis for this admission?: YesPlan: Patient care was transition to comfort care measures only
[2016-11-13 18:04] LABS: CREATININE RESULT 0.86 mg/dL (0.52-1.25)
[2016-11-13] MEDS ORDERED: NORMAL SALINE 1000 ML 1,000 ML IV PRN ×2 (18:05→18:06)
[2016-11-13 21:48] VITALS: BP 0/0
--- NOTE | 2016-11-16 11:00 | Death Summary ---
Summary Date : 11/13/16 Time of :: 19:20 Autopsy: No Resuscitation Status: Comfort Measures Only Primary Care Provider: Jared Conn MD Consulting Provider: Daisy Holland MD - Final Diagnosis (1) SIRS due to infectious process with organ dysfunction Is this a current diagnosis for this admission?: Yes (2) Pleural effusion in other conditions classified elsewhere Is this a current diagnosis for this admission?: Yes (3) Mass of middle lobe of right lung Is this a current diagnosis for this admission?: Yes (4) HTN (hypertension) Is this a current diagnosis for this admission?: Yes (5) HLD (hyperlipidemia) Is this a current diagnosis for this admission?: Yes (6) Diabetes mellitus, type 2 Is this a current diagnosis for this admission?: Yes (7) Dementia, senile Is this a current diagnosis for this admission?: Yes (8) Depression Is this a current diagnosis for this admission?: Yes (9) Hypercalcemia of malignancy Is this a current diagnosis for this admission?: Yes (10) Dehydration with hypernatremia Is this a current diagnosis for this admission?: Yes (11) Hypokalemia due to inadequate potassium intake Is this a current diagnosis for this admission?: Yes (12) Failure to thrive in adult Is this a current diagnosis for this admission?: Yes (13) Physical deconditioning Is this a current diagnosis for this admission?: Yes (14) Metastatic carcinoma Is this a current diagnosis for this admission?: Yes (15) Primary squamous cell carcinoma of lung Is this a current diagnosis for this admission?: Yes (16) Shoulder pain, left Is this a current diagnosis for this admission?: Yes Hospital Course:: KIRBY RAMIREZ is a 71 year old female who was recently diagnosed with right middle lobe mass and large right pleural effusion. In view of her significant history of cigarette smoking and rapid weight loss there is concern for possible underlying malignancy. Patient was schedule for outpatient right thoracentesis on 11/08/2016. Family brought her to the office today due to worsening fatigue, difficulty with ambulation, poor oral intake for food and fluid and difficulty with breathing. Patient was lifted into wheelchair during this office visit. Her initial evaluation in the office did revealed vitals BP 90/63, NH 123/min, RR 28/min and temperature was 98.6% on room air with saturation at 90%. In view of demonstrable systemic inflammatory response syndrome parameters patient's family was advised hospitalization for further evaluation and management. Her overall prognosis remain poor in view of her recent circumstances, this was further discussed with spouse and daughters in the office and decision was made to make patient a DNR status. Patient was initially managed the ICU due to significant hypercalcemia. She responded to IV hydration and Pamidronate administration. Patient had right thoracentesis completed on 11/04/2016 and cytology examination did confirm squamous cell carcinoma. The pleural fluid did demonstrate hemorrhagic characteristic suggestive of stage 4 metastatic lung cancer. She was seen in consultation by Dr Holland, medical oncologist. Family and patient did agreed to palliative chemotherapy. She received first dose in the hospital. Patient condition although initially show some improvement in terms of her responsiveness did changed rapidly on the day of her . She was eventually made comfort care by family and patient subsequently very rapidly thereafter. Autopsy was not requested or demanded by the family.
== END 2016-11-13 21:10 | DRG 180 ==
LOC: UNDOADMIN 16:36 → 3S 16:36 → ICU 16:59 → 3S 16:59 → 3W 11-04 18:55
PROVIDERS: ADMIT Internal Medicine Geriatric Medicine; ATTEND Internal Medicine Geriatric Medicine
PROC: 0W993ZZ Drainage of Right Pleural Cavity, Percutaneous Approach (ICD-10-PCS; principal; 2016-11-04)
DX: C34.2 Malignant neoplasm of middle lobe, bronchus or lung (principal); R65.20 Severe sepsis without septic shock; J91.0 Malignant pleural effusion; C78.7 Secondary malignant neoplasm of liver and intrahepatic bile duct; E87.0 Hyperosmolality and hypernatremia; F33.1 Major depressive disorder, recurrent, moderate; Z66 Do not resuscitate; E83.52 Hypercalcemia; E87.6 Hypokalemia; R91.8 Other nonspecific abnormal finding of lung field; I10 Essential (primary) hypertension; E78.5 Hyperlipidemia, unspecified; E11.9 Type 2 diabetes mellitus without complications; F03.90 Unspecified dementia, unspecified severity, without behavioral disturbance, psychotic disturbance, mood disturbance, and anxiety; R62.7 Adult failure to thrive; E86.0 Dehydration; M25.512 Pain in left shoulder; R06.00 Dyspnea, unspecified; Z87.891 Personal history of nicotine dependence
CPT/HCPCS: 32555; 36415; 70470; 70491; 71010; 80048; 80053; 80202; 81001; 82378; 82565; 82962; 83605; 83735; 85025; 85610; 85730; 87015; 87040; 87070; 87075; 87086; 87116; 87205; 87206; 88305; 88313; 88341; 88342; 89050; 96367; 96375; 96413; 96415; G8978-GP; G8979-GP; G8996-GN; G8997-GN; G8998-GN; J0461; J0692; J0743; J1100; J1815; J1956; J2060; J2405; J2430; J3370; J3475; J3480; J7030; J7040; J7050; J7060; J9045; J9206; Q0167